=== PATIENT | male | born 1955 | race Caucasian/White ===

== ENCOUNTER 2019-04-27 14:50 | Inpatient (IN) | payer OTHER, SELFPAY ==
[2019-04-27] VITALS (17 sets, daily range): BP systolic 121–167; BP diastolic 76–105; PULSE 68–92; RESP 12–20; TEMP 36.4–36.5; O2SAT 95–100; BMI 21.4
--- NOTE | ~2019-04-27 | XR_ITS ---
XR chest ET placement DATE: 04/27/2019 16:50 INDICATION: Shortness of breath. Altered mental state. ET tube placement. TECHNIQUE: Portable supine AP view on 04/27/2019 at 1644 hours COMPARISON: Portable AP chest on 06/28/2017 FINDINGS: ET tube is approximately 6.5 cm above alma; ideal range is 2-5 cm. Multiple old healed left rib fractures are noted. There is scoliosis and degenerative change of the t horacic and lumbar spine. No pulmonary infiltrate or consolidation, pleural effusion or pulmonary vascular congestion or pneumo thorax is detected. Normal heart size. Aortic calcification. No hilar or mediastinal enlargement. IMPRESSION: ET tube tip 6.5 cm above alma; ideal range is 2-5 cm No active cardiopulmonary disease Reviewed, dictated and finalized at [facility]. Reviewed, dictated and finalized at location A. CTOR OF PUPIL PERSONNEL PROGRAM
--- NOTE | ~2019-04-27 | XR_ITS ---
EXAMINATION: XR chest 1V portable DATE: 04/28/2019 05:56 INDICATION: Ventilated TECHNIQUE: frontal view of the chest was obtained. COMPARISON: Chest radiograph dated 06/27/2018 FINDINGS: Endotracheal tube tip 2.2 cm above the alma. Nasogastric tube with distal tip in proximal side port in the body of the stomach. Mild streaky atelectasis at the left lung base. No pleural effusion or p neumothorax. The cardiomediastinal silhouette is normal. Multiple old healed left-sided rib fractures . Severe thoracolumbar spondylosis. IMPRESSION: 1. Mild left basilar atelectasis. Reviewed, dictated and finalized at location A. NING DEVELOPMENT SPECIALIST
--- NOTE | ~2019-04-27 | CT_ITS ---
EXAMINATION: CT brain wo con DATE: 04/27/2019 16:39 INDICATION: Fall. Found on floor with facial trauma. Unresponsive. Agitated. TECHNIQUE: Computed tomography (CT) of the head was performed without intravenous contrast. The mA wa s adjusted according to patient size. Iterative reconstruction technique was employed. Exam dose: 68 1.00 mGy-cm total exam DLP. COMPARISON: 06/29/2017 MRI brain/brainstem 06/28/2017 CT brain FINDINGS: There is a right frontal cephalohematoma. No skull fracture is detected. There is some soft tissue thickening of the ethmoid air cells and left sphenoid sinus primarily, but the included paran karine sinuses are otherwise unremarkable. The mastoid air cells are normally developed and aerated. There is some beam hardening artifacts in the posterior fossa but no apparent contrecoup injury or an y subdural or epidural hematoma is detected. No intracranial mass lesion or hemorrhage or cerebrovascular accident is evident. CT is not sensitive for detection of hyperacute ischemic cerebrovascular accident. Normal ventricular size. There are bilateral carotid siphon internal carotid artery calcifications. There is nonspecific dimin ished attenuation of the cerebral white matter, likely due to chronic small vessel ischemic changes. IMPRESSION: Right frontal cephalohematoma; no skull fracture or acute intracranial finding Reviewed, dictated and finalized at [facility]. Reviewed, dictated and finalized at location A. RMATION AND REFERRAL DIRECTOR IMPRESSION: Right frontal cephalohematoma; no skull fracture or acute intracra nial finding
--- NOTE | ~2019-04-27 | XR_ITS ---
XR chest ET placement DATE: 04/27/2019 20:49 INDICATION: ET tube advancement TECHNIQUE: Portable AP chest on 04/27/2019 at 2044 hours COMPARISON: 04/27/2019 AP chest FINDINGS: ET tube tip is approximately 3.5 cm above alma in satisfactory position. A nasogastric tu be is noted within the gastric fundus. Normal heart size. Aortic arch calcification. No hilar or mediastinal enlargement is evident. No pulmonary infiltrate or consolidation, pleural effusion or pulmonary vascular congestion or pneumo thorax is detected. Degenerative spurring of the thoracic spine. Old healed left rib fractures. Osteopenia. IMPRESSION: ET tube in satisfactory position Nasogastric tube in stomach No active cardiopulmonary disease Reviewed, dictated and finalized at [facility]. Reviewed, dictated and finalized at location A. BUILDER
--- NOTE | ~2019-04-27 | XR_ITS ---
EXAMINATION: XR chest 1V portable DATE: 05/01/2019 06:05 INDICATION: Shortness of breath TECHNIQUE: frontal view of the chest was obtained. COMPARISON: Chest radiograph dated 04/30/2019 FINDINGS: Skinfold projects over the lateral right upper lung zone. Lucency and architectural distortion in the bilateral upper lung zones consistent with emphysema better appreciated on CT dated 04/27/2019. No n ew airspace opacities, pulmonary edema, pleural effusion or pneumothorax. The cardiomediastinal silho uette is normal. Multiple old healed left-sided rib fractures. Mild lower thoracic levocurvature with severe spondylosis. IMPRESSION: 1. Emphysema. No acute cardiopulmonary disease. Reviewed, dictated and finalized at location A. ER
--- NOTE | ~2019-04-27 | XR_ITS ---
XR abdomen NG/feed tube insert DATE: 04/27/2019 20:49 INDICATION: NG tube placement TECHNIQUE: Portable semiupright AP views on 04/27/2019 at 2046 hours COMPARISON: 05/29/2016 obstructive series FINDINGS: A nasogastric tube is present in the gastric fundus, approximately 15 cm of tube within the upper stomach. Included bowel gas pattern is unremarkable. No intraperitoneal free air is evident. IMPRESSION: NG tube in gastric fundus Reviewed, dictated and finalized at [facility]. Reviewed, dictated and finalized at location A. TIG WELDER IMPRESSION: NG tube in gastric fundus
--- NOTE | ~2019-04-27 | CT_ITS ---
EXAMINATION: CT cervical spine wo con DATE: 04/27/2019 16:39 INDICATION: Fall. Patient found unresponsive on the floor TECHNIQUE: Computed tomography (CT) of the cervical spine was performed without intravenous contrast. Automated exposure control and iterative reconstruction technique were employed. Exam dose: 413.65 mGy-cm total exam DLP. COMPARISON: None FINDINGS: The examination is severely limited by motion. Repeat examination is recommended when the p atient is able to fully cooperate. Moderate degenerative disc disease is noted at C3-4, C4-5. Severe degenerative disc disease at C5-6 a nd C6-7 with retrolisthesis, especially at C5-6. There is fusion at the apophyseal joints bilaterally at C4-5. Prominent degenerative change at the remaining apophyseal joints. Prominent uncovertebral j oint spurring at C4-5 and particularly C5-6 and C6-7.. IMPRESSION: Limited examination due to prominent motion; repeat examination is recommended when the patient is able to cooperate Severe degenerative changes Reviewed, dictated and finalized at [facility]. Reviewed, dictated and finalized at location A. RANCE ASSISTANT
--- NOTE | ~2019-04-27 | XR_ITS ---
EXAMINATION: XR chest 1V portable DATE: 04/30/2019 07:37 INDICATION: Fevers TECHNIQUE: frontal view of the chest was obtained. COMPARISON: Chest radiograph dated 04/29/2019 FINDINGS: The lungs remain clear with no focal airspace opacities, pulmonary edema, pleural effusion or pneumot horax. The cardiomediastinal silhouette is normal. Multiple old healed left-sided rib fractures. IMPRESSION: 1. No acute cardiopulmonary disease. Reviewed, dictated and finalized at location A. D OVEN OPERATOR
--- NOTE | ~2019-04-27 | XR_ITS ---
EXAMINATION: XR chest ET placement DATE: 04/29/2019 01:55 INDICATION: Endotracheal tube placement TECHNIQUE: frontal view of the chest was obtained. COMPARISON: Chest radiograph dated 04/28/2019 FINDINGS: Endotracheal tube tip 3.5 cm above the alma. Nasogastric tube extends below the left hemidiaphragm with distal tip collimated off the study. Lungs remain clear with no airspace opacities, pulmonary e jeremy, pleural effusion or pneumothorax. The cardiomediastinal silhouette is normal. Levocurvature at the thoracolumbar junction with severe spondylosis. Multiple old healed left-sided rib fractures. IMPRESSION: 1. Endotracheal tube tip 3.5 cm above the alma. 2. No acute cardiopulmonary disease. Reviewed, dictated and finalized at location A. CH FOLDING MACHINE OPERATOR
--- NOTE | 2019-04-27 15:23 | PC.NURSE ---
EDP(Dr. Coppola) made aware of patient's condition. No new orders obtained at this time.
--- NOTE | 2019-04-27 15:36 | ED.GENADULT ---
HPI - General Adult General Chief complaint: Altered Mental Status Stated complaint: aloc Time Seen by Provider: 04/27/19 15:24 Source: family Mode of arrival: EMS Limitations: altered mental status History of Present Illness HPI narrative: The pt is a 63 y/o male who presents to the ED, via EMS, with c/o AMS. The pt's daughter states that she got a call saying the pt was found passed out in the bathroom naked. She notes that he takes a lot of medications for pain and that she has not spoken to the pt in a week or two. The pt lives by himself and the daughter states that she does not think he use any illegal substances or alcohol. She states that he has HTN but does not know much about the pt's medical PMHx. A complete HPI was limited due to the pt's AMS. complaint: AMS Associated symptoms: other (none) Related Data Allergies Allergy/AdvReac Type Severity Reaction Status Date / Time Penicillins Allergy Unknown Unknown Verified 04/27/19 15:01 Review of Systems Review of Systems: ROS unobtainable: unobtainable due to mental status PMFSH Past Medical History Medical History (Updated 04/27/19 @ 19:04 by John Coppola MD) Anxiety (Chronic) Back pain (Chronic) COPD (chronic obstructive pulmonary disease) (Chronic) CVA (cerebral vascular accident) (Chronic) Depression (Chronic) Diabetes (Chronic) Emphysema of lung (Chronic) Fractures (Chronic) Hypertension (Chronic) Hypothyroid (Chronic) Peripheral neuropathy (Chronic) Ulcer (Chronic) Surgical History Surgical History (Updated 04/27/19 @ 18:10 by Ciara Jean Baptiste PA-C) History of intestinal surgery (Chronic) Hx of appendectomy (Chronic) Family History Family History (Updated 06/22/14 @ 08:10 by DOCTOR UNKNOWN) Father Hypertension Other Family history of emphysema Social History Social History (Updated 04/27/19 @ 15:45 by Natalie Barraza) Smoking status: Current every day smoker Additional smoking assessment comments: 1-2 PPD for 40 years Alcohol intake: current Exam Const: General: healthy appearing, no acute distress and well developed Nutritional Appearance: well nourished HENMT: Head: normocephalic and atraumatic Ears: external ears normal General nose exam: no nasal discharge and no epistaxis Face and sinus: face symmetric Mouth: Yes lip normal and Yes moist mucous membranes Eyes: Conjunctivae: conjunctivae normal Sclera: sclerae normal EOM: EOM intact bilaterally Other: pupils equal Chest: Chest palpation & inspection: no tenderness Resp: Effort & Inspection: normal respiratory effort Auscultation: clear to auscultation bilaterally, no rales, no rhonchi, no wheezes and other (breath sounds equal) Other: maintaining airway Cardio: Rate: regular rate Rhythm: regular rhythm Heart sounds: no gallops and no murmurs GI: Inspection: non-distended Palpation (GI): No abdominal tenderness and Yes soft Auscultation: other (bowel sounds present) : General: Yes no CVA tenderness Back/Spine/Pelvis: Back: no CVA tenderness Thoracic/Lumbar Spine: thoracic and lumbar spine normal to inspection Skin: General skin exam: normal color and no rashes or lesions noted Other: bruising on nose and forehead Neuro: Other: not talking or following commands, barely moving his feet to painful stimuli Extrem: General: normal to inspection and no pedal edema Psych: Other: not talking or following commands Course Course Emergency Course: he was intermittently very lethargic versus restless/almost combative could not be scanned so elected to paralyze/intubate both for airway protection and to allow for evaluation sedated w/ propofol/fentanyl with stable vs, had to inc rr due to acidosis.co2 retention in the main findings were pretty unremarkable, apart from inc wbc w/o any clear reason and a wnl lactic this was d/w family d/w hospitalists and icu for admit Vital Signs Vital signs: Vital Signs Temperature 36.5
--- NOTE | 2019-04-27 16:05 | PC.NURSE ---
Unable to obtain CT scan due to restlessness. Patient returned to room 14. EDP requesting patient be sedated and intubated to obtain CT scan. Setting up for intubation at this time. Respiratory at bedside.
--- NOTE | 2019-04-27 16:07 | PC.NURSE ---
EDP requesting IV [id number] and IV Etomidate 20mg to be prepared for intubation.
--- NOTE | 2019-04-27 16:09 | PC.NURSE ---
IV Etomidate given at this time per verbal order from EDP.
--- NOTE | 2019-04-27 16:09 | PC.NURSE ---
IV succ given at this time per verbal order from EDP.
--- NOTE | 2019-04-27 16:11 | PC.NURSE ---
EDP attempted to intubate at this time; patient flailing at this time. IV succ 80mg per verbal order from EDP. IV infiltrated; unable to administer meds.
--- NOTE | 2019-04-27 16:14 | PC.NURSE ---
IV Etomidate 20mg given per verbal order from EDP
--- NOTE | 2019-04-27 16:15 | PC.NURSE ---
IV Succ 120mg given per verbal order from EDP. Preparing to attempt intubation.
--- NOTE | 2019-04-27 16:17 | PC.NURSE ---
7.5 ET tube 23 at the lip. Positive color change on CO2 detector. Respiratory bagging at this time.
--- NOTE | 2019-04-27 16:40 | PC.NURSE ---
Patient to CT scan and returned to room 14. IV propofol 40mg given CT at 1636 by this RN per verbal order from EDP.
--- NOTE | 2019-04-27 16:42 | PC.NURSE ---
IV propofol 40mg given per verbal order from EDP.
--- NOTE | 2019-04-27 16:49 | PC.NURSE ---
IV Propofol 40mg given per verbal order from EDP at this time.
--- NOTE | 2019-04-27 17:03 | PC.NURSE ---
IV propofol 40mg given per verbal order from EDP.
[2019-04-27 17:09] LABS: Alveolar/Arterial O2 Gradient 225.6 mmHg; Base Excess ABG -3.3 mEq/l (+/-2.0); Fractional Inspired Oxygen 100 %; HCO3 ABG 24.2 mEq/l (22.0-26.0); Oxygen Content ABG 21.3 %vol (16.0-22.0); Oxygen Saturation ABG 99.8 % (95.0-100.0); Oxyhemoglobin 97.8 % THb (90.0-100.0); PCO2 ABG 53.1 mmHg (35.0-45.0); PO2 ABG 434.3 mmHg (80.0-100.0); PO2 FiO2 Ratio Arterial Blood 4.34 %; Total Hemoglobin 14.7 g/dL (12.0-18.0)
[2019-04-27 17:11] LABS: Arterial Blood Gas PEEP 5 cmH2O; Arterial Blood Gas Tidal Volume 430 ml; Arterial Blood Gas Vent Mode CMV; Arterial Blood Gas Ventilator rate 12 /MIN; Device VENTILATOR; Site Drawn LEFT BRACHIAL; pH ABG 7.277 (7.350-7.450)
[2019-04-27 17:14] LABS: Basophils Absolute Auto 0.1 K/mm3 (0.0-0.1); Basophils Percent Auto 0.3 % (0.2-1.2); Eosinophils Absolute Auto 0.2 K/mm3 (0-0.3); Eosinophils Percent Auto 1.1 % (0-4.4); Hematocrit 42.2 % (42.0-52.0); Hemoglobin 13.9 g/dL (14.0-18.0); Immature Granulocyte Absolute 0.06 K/mm3 (0.00-0.031); Immature Granulocyte Percent A 0.4 % (0-0.5); Lymphocytes Absolute Auto 1.48 K/mm3 (0.9-3.2); Lymphocytes Percent Auto 9.6 % (18.3-44.2); Mean Corpuscular HGB Conc 32.9 g/dl (32-36); Mean Corpuscular Volume 91.1 fl (80-100); Monocytes Absolute Auto 0.6 K/mm3 (0.1-0.6); Monocytes Percent Auto 3.8 % (2.6-8.5); Neutrophils Absolute Auto 13.1 K/mm3 (1.3-6.7); Neutrophils Percent Auto 84.8 % (45.5-73.1); Platelet Count Result 424 k/mm3 (150-375); Red Blood Count 4.63 M/mm3 (4.6-6.20); Red Cell Distribution Width 14.3 % (11.5-14.5); White Blood Count 15.4 K/mm3 (4.5-10.0)
[2019-04-27] MEDS: PROPOFOL IV EMULSION 100 ML 3.6 MG IV CONT (17:25)
[2019-04-27 17:26] LABS: Alanine Aminotransferase 23 U/L (4-50); Albumin Level 4.3 g/dL (3.5-5.1); Alkaline Phosphatase 86 U/L (38-126); Aspartate Amino Transferase 31 U/L (17-59); Bilirubin,Total 0.2 mg/dL (0.2-1.3); Blood Urea Nitrogen 12 mg/dL (9-20); Calcium 9.4 mg/dL (8.4-10.2); Carbon Dioxide 26 mmol/L (22-30); Chloride 105 mmol/L (98-107); Estimated Glomerular Filt Rate > 60; Glucose 118 mg/dL (75-110); Magnesium 2.2 mg/dL (1.6-2.3); Potassium 3.9 mmol/L (3.4-5.0); Sodium 141 mmol/L (137-145)
[2019-04-27 17:27] LABS: Ethanol < 10 mg/dL (<10); Lactic Acid Reflex 0.8 mmol/L (0.7-2.1)
[2019-04-27 17:30] LABS: Amphetamine Screen Urine Negative (Negative); Barbiturate Screen Urine Negative (Negative); Benzodiazepines Screen Urine Positive (Negative); Cannabinoid Screen Urine Negative (Negative); Cocaine Screen Urine Negative (Negative); Methadone Screen Urine Negative (Negative); Opiate Screen Urine Positive (Negative); Phencyclidine Screen Urine Negative (Negative)
--- NOTE | 2019-04-27 17:37 | PC.NURSE ---
IVP propofol 40mg given per verbal order from EDP. EDP called to bedside. Verbal order to increase rate to 20mcg/kg/min.
[2019-04-27 17:39] LABS: Troponin I 0.018 ng/mL (0.000-0.034)
[2019-04-27 17:58] LABS: Thyroid Stimulating Hormone 0.353 uIU/mL (0.465-4.680)
--- NOTE | 2019-04-27 18:06 | PC.NURSE ---
RT at bedside suctioning patient. Patient still moving all extremities and attempting to cough. Verbal order from EDP to increase Propofol drip to 40mcg/kg/min.
[2019-04-27 18:09] LABS: Acetaminophen < 10 ug/mL (10-30); Salicylate < 1.0 mg/dL (2-20)
--- NOTE | 2019-04-27 18:09 | ECG_ITS ---
Measurements Intervals [place] Rate: 90 P: 83 MA: 169 QRS: 88 QRSD: 94 T: 73 QT: 360 QTc: 442 Interpretive Statements SINUS RHYTHM DELAYED PRECORDIAL R/S TRANSITION MINIMAL Q WAVES- ANTEROLAT/INF LEADS BASELINE WANDER- I, II, III BORDERLINE ECG Electronically Signed On 04-28-2019 6:41:11 VOLTMETER OPERATOR by Gonzalez Reyes D.O.
--- NOTE | 2019-04-27 18:10 | PM.IMHP ---
H&P: HPI History of Present Illness Chief complaint: Found down, altered mental status. Narrative: Myles Webster is a 63 year old male with a history of prescription drug abuse and chronic pain syndrome, prescribed multiple medications including oxycodone, morphine, citalopram, meloxicam, amitriptyline, gabapentin, and baclofen, who presented to the emergency department earlier this afternoon via EMS from home for evaluation after he was found down with altered mental status. He is currently sedated and intubated, and as such all of this history is obtained via a review of his electronic medical records as well as discussions with his son and daughter at bedside. His friend and neighbor, Darrius, provides additional information via phone. Darrius sees Myles on a nearly daily basis, and his children note that they see him maybe once or twice a month. The patient has had longstanding low back pain and has been on narcotics ?for years.? All parties I spoke with indicated to me separately that the they are concerned about the patient and believe that he has been abusing his medications for quite some time. Darrius indicates that he is frequently confused, and last week he was ?running around the complex wearing under pants, a shirt, and only one shock ?tearing up the place. Last evening, the police and fire department were at their apartment complex as Myles overflowed his bathtub, which caused a water leak into the apartments below him. According to Darrius, he was confused at that time and she was hopeful that the police would take him to the hospital but they did not. In any event, Darrius received a phone call from another neighbor this morning with concerns about Myles. Apparently his dog was barking all day, which is unusual, and Darrius used her extra quesada to go check on him. She found Myles lying on the bathroom floor with his head propped up against the wall, wearing no clothes, and noted that there were towels and mops scattered around the bathroom. The bathtub was turned on with the drain was open, and no further flooding was noted. EMS was summoned and on their arrival he was confused but alert, however was not answering questions. He was given Narcan without benefit. In the emergency department, he was uncooperative and combative, and unable to hold still for CT. He was then sedated and intubated. Labs were really unremarkable. Urine drug screen was positive for opiates and benzodiazepines. I did review the prescription monitoring program, and I see no benzodiazepine prescriptions. Neighbors and family members do not think he purchases these off the streets, but they tell me that ?drugs are everywhere in that building.? They do not believe that he intentionally overdosed or was trying to harm himself. Review of Systems Review of Systems: ROS unobtainable: due to endotracheal tube PMFSH Past Medical History Medical History Anxiety (Chronic) Back pain (Chronic) COPD (chronic obstructive pulmonary disease) (Chronic) Depression (Chronic) Diabetes (Chronic) Emphysema of lung (Chronic) Fractures (Chronic) Hypertension (Chronic) Hypothyroid (Chronic) Opioid dependence (Acute) Peripheral neuropathy (Chronic) Prescription drug abuse (Acute) Ulcer (Chronic) Surgical History Surgical History (Updated 04/27/19 @ 23:09 by Ciara Jean Baptiste PA-C) H/O left knee surgery (Acute) History of intestinal surgery (Chronic) Hx of appendectomy (Chronic) Family History Family History Father Hypertension Other Family history of emphysema Social History Social History (Updated 04/27/19 @ 23:11 by Ciara Jean Baptiste PA-C) Social History: The patient is disabled and lives in his own apartment in [place]. His primary care provider is Adelaida Chilel NP. 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 His son Ze Webster and daughter Merry Moreau are hi
[2019-04-27 18:11] LABS: Creatine Kinase 165 U/L (55-170)
--- NOTE | 2019-04-27 21:31 | ADMGEN ---
This patient, Myles Webster, was admitted to Intensive Care Unit-3. Patient/family oriented to hospital policies and general routines including ID bracelet, bed and alarms, visiting hours, pain management, procedures, bathroom and other care routines, personal items, smoking policy, room service/diet, and visiting hours. Valuables list has been completed. Information on how to activate the Rapid Response Team has been discussed. Patient/Family are encouraged to report perceived risks to care and to ask questions if they do not understand what they are told or what they should do.
[2019-04-27] MEDS: PROPOFOL IV EMULSION 100 ML 18.1 MG IV CONT (22:05)
[2019-04-27] MEDS: FAMOTIDINE 20 MG/2 ML VIAL IV PUSH (22:12)
[2019-04-27] MEDS: LACTATED RINGERS 1,000 ML 125 ML IV CONT (23:06)
--- NOTE | 2019-04-27 23:22 | PC.NURSE ---
2100: Call made out to Dr. Rogers regarding this patient newly admitted to the ICU. Orders received are to obtain a CXR, labs (CBC and BMP) and ABG's on 04/28/[address] Rogers stated to continue patient's Propofol gtt and Fentanyl gtt and to continue with the ventilator settings started in ER.
[2019-04-28] VITALS (24 sets, daily range): BP systolic 61–150; BP diastolic 52–91; PULSE 49–86; RESP 12–18; TEMP 36.4–37.1; O2SAT 97–100; BMI 20.9
[2019-04-28 01:17] LABS: Free T4 Free Thyroxine 0.85 ng/mL (0.78-2.19)
[2019-04-28] MEDS: PROPOFOL IV EMULSION 100 ML 10.9 MG IV CONT ×3 (04:45→18:11)
[2019-04-28 05:21] LABS: Alveolar/Arterial O2 Gradient 112.7 mmHg; Base Excess ABG 0.6 mEq/l (+/-2.0); Fractional Inspired Oxygen 35 %; HCO3 ABG 25.1 mEq/l (22.0-26.0); Oxygen Content ABG 18.9 %vol (16.0-22.0); Oxyhemoglobin 95.9 % THb (90.0-100.0); PCO2 ABG 40.1 mmHg (35.0-45.0); PO2 ABG 90.2 mmHg (80.0-100.0); PO2 FiO2 Ratio Arterial Blood 2.58 %; pH ABG 7.415 (7.350-7.450)
[2019-04-28 05:22] LABS: Device VENTILATOR; Modified Allen's Test Pass; Site Drawn LEFT RADIAL
[2019-04-28 05:23] LABS: Arterial Blood Gas Minute Volume 7 LPM; Arterial Blood Gas PEEP 5 cmH2O; Arterial Blood Gas Tidal Volume 430 ml; Arterial Blood Gas Vent Mode CMV; Arterial Blood Gas Ventilator rate 16 /MIN
[2019-04-28 05:48] LABS: Alanine Aminotransferase 20 U/L (4-50); Albumin Level 3.7 g/dL (3.5-5.1); Alkaline Phosphatase 72 U/L (38-126); Aspartate Amino Transferase 30 U/L (17-59); Bilirubin,Total 0.1 mg/dL (0.2-1.3); Blood Urea Nitrogen 14 mg/dL (9-20); Calcium 9.2 mg/dL (8.4-10.2); Carbon Dioxide 27 mmol/L (22-30); Chloride 105 mmol/L (98-107); Estimated CRCL calculation 95 ml/min; Estimated Glomerular Filt Rate > 60; Glucose 93 mg/dL (75-110); Magnesium 2.1 mg/dL (1.6-2.3); Phosphorus 3.7 mg/dL (2.5-4.5); Potassium 3.9 mmol/L (3.4-5.0); Sodium 140 mmol/L (137-145)
[2019-04-28 05:54] LABS: Glucose Point of Care 101 (65-105)
[2019-04-28 06:34] LABS: Thyroid Stimulating Hormone Reflex 0.996 uIU/mL (0.465-4.68)
[2019-04-28] MEDS: LACTATED RINGERS 1,000 ML 125 ML IV CONT ×3 (06:37→23:07)
[2019-04-28 07:32] LABS: Basophils Absolute Auto 0.1 K/mm3 (0.0-0.1); Basophils Percent Auto 0.4 % (0.2-1.2); Eosinophils Absolute Auto 0.3 K/mm3 (0-0.3); Eosinophils Percent Auto 1.8 % (0-4.4); Hematocrit 40.1 % (42.0-52.0); Hemoglobin 13.1 g/dL (14.0-18.0); Immature Granulocyte Absolute 0.06 K/mm3 (0.00-0.031); Immature Granulocyte Percent A 0.4 % (0-0.5); Lymphocytes Absolute Auto 2.07 K/mm3 (0.9-3.2); Lymphocytes Percent Auto 12.2 % (18.3-44.2); Mean Corpuscular HGB Conc 32.7 g/dl (32-36); Mean Corpuscular Hemoglobin 29.4 pg (26-34); Mean Corpuscular Volume 89.9 fl (80-100); Mean Platelet Volume 10.6 fl (7.4-10.4); Monocytes Absolute Auto 1.4 K/mm3 (0.1-0.6); Monocytes Percent Auto 8.1 % (2.6-8.5); Neutrophils Absolute Auto 13.1 K/mm3 (1.3-6.7); Neutrophils Percent Auto 77.1 % (45.5-73.1); Platelet Count Result 421 k/mm3 (150-375); Red Blood Count 4.46 M/mm3 (4.6-6.20); Red Cell Distribution Width 14.4 % (11.5-14.5)
[2019-04-28 07:59] LABS: Troponin I 0.754 ng/mL (0.000-0.034)
[2019-04-28] MEDS: ASPIRIN 81 MG CHEWABLE TABLET 324 MG PO (08:02)
[2019-04-28] MEDS: METOPROLOL TARTRATE INJ 5 MG/5 ML VIAL IV PUSH ×2 (08:03→12:27)
[2019-04-28] MEDS: FAMOTIDINE 20 MG/2 ML VIAL IV PUSH ×2 (08:03→20:53)
--- NOTE | 2019-04-28 08:42 | PM.CNCAR ---
Assessment and Plan Additional Plan agree with aspirin and beta-robert treatment empirically The elevation in troponin is not entirely unexpected given this presentation is probably not related to acute myocardial infarction in my opinion Further recommendations if any will be forthcoming after the echocardiogram is reviewed. History of Present Illness History of Present Illness Consult date/time: 04/28/19 08:42 Chief complaint: Found down, altered mental status. Narrative: This is a 63-year-old patient I am seeing at the request of the hospitalist and ICU staff because of an elevation in his troponin level which occurred on lab data following admission last evening. The patient ice in capable of providing any history because he is intubated sedated and on mechanical ventilator support in the ICU. The entire history therefore is obtained according to the chart. From what I am told and from what I can see in the chart there is no previous history of any cardiac problems. He has a longstanding history of pain and has a variety of narcotics prescribed for him that are available to him in his home. According to the chart is that he is there was suspicion that he is abusing his prescription narcotics. He was brought into the hospital last evening when he was found a by the EMS/firefighters were brought to the seen finding him on the floor on clothes in his bathroom with the past up running his dog was barking in the home which alerted other residents in his apartment building that there was concern. His 12 lead ECG that has been recorded in the field and here at the hospital is unremarkable. He was given Narcan in the field and was still a in the state of poorly responsiveness and he became agitated he was intubated and sedated in the ICU and admitted. His drug screen is positive for opiates and benzodiazepines. He had troponin levels done following admission which were 1.4 and 0.7. For this reason I was consulted to see him. He has been placed on aspirin and a beta-robert and an echocardiogram has been ordered. Once again his electrocardiogram does not show any acute changes of injury or ischemia. Review of Systems Review of Systems: Narrative: Not obtainable in this patient who is intubated [facility] Past Medical History Medical History (Updated 04/27/19 @ 23:15 by Ciara Jean Baptiste PA-C) Anxiety (Chronic) Back pain (Chronic) COPD (chronic obstructive pulmonary disease) (Chronic) Depression (Chronic) Diabetes (Chronic) Emphysema of lung (Chronic) Fractures (Chronic) Hypertension (Chronic) Hypothyroid (Chronic) Opioid dependence (Acute) Peripheral neuropathy (Chronic) Prescription drug abuse (Acute) Ulcer (Chronic) Surgical History Surgical History (Updated 04/27/19 @ 23:09 by Ciara Jean Baptiste PA-C) H/O left knee surgery (Acute) History of intestinal surgery (Chronic) Hx of appendectomy (Chronic) Family History Family History Father Hypertension Other Family history of emphysema Social History Social History (Updated 04/27/19 @ 23:11 by Ciara Jean Baptiste PA-C) Social History: The patient is disabled and lives in his own apartment in [place]. His primary care provider is Adelaida Chilel NP. 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 His son Ze Webster and daughter Merry Moreau are his next of kin. They wish him to be a full code. He has smoked up to 2 packs cigarettes per day for at least 40 years. He used to drink a 12 pack of beer daily, but now drinks rarely, according to the children and neighbor. He used to smoke marijuana. Additional smoking assessment comments: Other substance usage details: Meds Home Medications and Allergies Home Medications Medication Instructions Recorded Confirmed Type albuterol sulfate [ProAir HFA] 2 puff INHALATION Q6H PRN 04/27/19 04/27/19 History baclofen 10 mg PO TID 04/27/19 04/27/19 History b
--- NOTE | 2019-04-28 09:23 | WPDCNINT ---
Assessment and Plan Assessment and plan (1) Acute respiratory failure: Code(s): J96.00 - Acute respiratory failure, unspecified whether with hypoxia or hypercapnia Status: Acute Assessment and Plan: acute respiratory failure most likely related to agitation/ combativeness, airway protection - will wean sedation, patient gets agitated will place him on Precedex and evaluate for extubation - chest x-ray and ABGs reviewed (2) Altered mental status: Code(s): R41.82 - Altered mental status, unspecified Status: Acute Assessment and Plan: acute altered mental status/encephalopathy could be related to medication overdose, urine tox screen was positive for opioids and benzos - patient is received adequate amount of fluids, urine output has been adequate - continue maintenance IV fluids (3) Elevated troponin: Code(s): R79.89 - Other specified abnormal findings of blood chemistry Status: Acute Assessment and Plan: patient with elevated troponin - started on aspirin, beta-robert - echocardiogram has been ordered - appreciate Cardiology evaluation recommendation (4) Opioid dependence: Code(s): F11.20 - Opioid dependence, uncomplicated Status: Acute Assessment and Plan: patient with opiate dependence - currently on fentanyl infusion - once fentanyl was weaned off will monitor for any kind of opioid withdrawal and introduce opioids gradually (5) Prescription drug abuse: Status: Acute (6) Fall: Qualifiers: Encounter type: initial encounter Qualified Code(s): W19.XXXA - Unspecified fall, initial encounter Code(s): W19.XXXA - Unspecified fall, initial encounter Status: Acute Assessment and Plan: patient status post fall, hitting his nose and forehead. Patient does have a frontal cephalohematoma on CT scan of the brain. Patient also has bruising on his nose - (7) Hypertension: Code(s): I10 - Essential (primary) hypertension Status: Chronic Assessment and Plan: patient with history of essential hypertension, - started on metoprolol due to elevated troponin (8) COPD (chronic obstructive pulmonary disease): Code(s): J44.9 - Chronic obstructive pulmonary disease, unspecified Status: Chronic Assessment and Plan: continue bronchodilators, mechanical ventilation. Chest x-ray reviewed, no acute cardiopulmonary issues (9) Anxiety: Code(s): F41.9 - Anxiety disorder, unspecified Status: Chronic Assessment and Plan: history of anxiety, patient does take buspirone, citalopram, gabapentin at home will restart (10) DVT prophylaxis: Code(s): Z29.9 - Encounter for prophylactic measures, unspecified Status: Acute Assessment and Plan: SCDs Additional Plan will discuss with family once available code status: full code critical care time spent: 36 minutes Consult date: 04/28/19 Time Seen: 07:04 Reason for consult: acute respiratory failure, altered mental status, fall, facial injury HPI: Myles Webster is a 63 year old male with past medical history of diabetes, COPD /emphysema were essential hypertension, hypothyroidism, opiate dependence, peripheral neuropathy, prescription drug abuse, anxiety presented to the ED via EMS after being found down at home with altered mental status. according to the records patient has been on narcotics for a long time for chronic pain syndrome. the daughter and the neighbor feels that he has been abusing his narcotics and medications for quite some times. Patient was frequently confused and last week he was running around in the complex wearing An underwear, shirt and only ones shock and tearing up the place. on 04/27/2019 did able went to check on him he was found lying on the bathroom floor with his head propped up against the wall wearing no clothes. EMS was called and upon their arr
[2019-04-28] MEDS: PERFLUTREN LIPID MICROSPHERES 1.5 ML VIAL DILUTED TO 10 ML TOTAL VOLUME IV PUSH (09:44)
--- NOTE | 2019-04-28 09:55 | ECHO_ITS ---
Patient Info Name: Myles Webster Age: 63 years : 1955 Gender: Male Ht: 67 in Wt: 134 lbs BSA: 1.69 m2 HR: 65 bpm BP: 125 / 86 mmHg Heart Rhythm: Sinus Rhythm Technical Quality: Good Exam Date: 04/28/2019 9:12 AM Exam Location: [facility] Patient Status: Inpatient Admit Date: 04/27/2019 Staff Ordering Physician: Niecy Rogers MD General Labor Forklift Operator: Yusef Gamboa RDCS Attending Provider: Dutch Redmond MD Referring Physician: Ken MEJIAS; Exam Type: CA echo dop color flow w con Study Info Indications I21.4 - Non-ST elevation (NSTEMI) myocardial infarction Complete two-dimensional, color flow and Doppler transthoracic echocardiogram is performed with contrast to opacify the left ventricle and to improve the deliniation of the left ventricle endocardial borders. Contrast/Agitated Saline Contrast/Ag. Saline: Definity Amount: 3.00 ml Administered By: Mirza Vela RN History/Risk Factors NSTEMI; found down w/ AMS, opoid abuse. Summary 1. Left ventricular systolic function is severely reduced, estimated at 20-25%. 2. Definity contrast was injected to improve visualization. 3. Following contrast injection the LV is noted to be globally hypodynamic. 4. There is trace mitral valve regurgitation. 5. The aortic valve is trileaflet. Left Ventricle Left ventricular chamber dimension is mildly enlarged. Left ventricular systolic function is severely reduced, estimated at 20-25%. Definity contrast was injected to improve visualization. Following contrast injection the LV is noted to be globally hypodynamic. Right Ventricle Right ventricular chamber dimension is not well visualized. Left Atria Left atrial chamber dimension is moderately enlarged. Right Atria Right atrial chamber dimension is mildly enlarged. Aortic Valve The aortic valve is trileaflet. Pulmonic Valve The pulmonic valve is not well visualized. Mitral Valve The mitral valve has normal leaflets. There is trace mitral valve regurgitation. Tricuspid Valve The tricuspid valve leaflets are not well visualized. Pericardium/Pleural The pericardium appears normal. Aorta The aortic root size at the sinus of Valsalva is normal. Left Ventricular Outflow Tract Name Value Normal LVOT 2D LVOT Diameter 2.03 cm LVOT Doppler LVOT Peak Gradient 1 mmHg LVOT Mean Gradient 0 mmHg LVOT VTI 10.00 cm LVOT VTI/AV VTI Ratio 0.71 LVOT Stroke Volume 32.38 ml Mitral Valve Name Value Normal MV Doppler MV Decel King 118.51 cm/s2 MV PHT 0 s MV Area (PHT) 2.84 cm2 4.00-5.00 M
--- NOTE | 2019-04-28 13:30 | PCDIET ---
ICU Rounding Note:TF recommendations Pt current nutrition is NPO. Nutrition recommendation: If pt is unable to wean from vent begin Jevity 1.2 at 40mL/hr for 8 hours and advance by 10 mL every 4 hours as tolerated until a goal rate of 70mL/hour is reached. Include 25 mL free water flushes every hour. Tube feeding at goal rate of 70 mL/hour to provide 1848 calories and 85g protein per day. RD will continue to monitor for diet advancement. Last recorded weight is [f pt wt kg]kg. Bowel Motility: Labs Reviewed:WNL Meds Noted: Additional Notes: Following daily in ICU rounds. Assessing/reassessing [g DIETFREQ].
[2019-04-28] MEDS: SODIUM CHLORIDE 0.9% IV 1,000 ML 999 ML IV CONT (14:53)
--- NOTE | 2019-04-28 18:01 | PM.IMPN ---
Progress Note: A&P Assessment and Plan (1) Altered mental status: Code(s): R41.82 - Altered mental status, unspecified Status: Acute Assessment and Plan: Patient is 63-year-old male with history of chronic pain and and opiate abuse patient was found unresponsive and was brought to the emergency department further evaluation where he was combative and to protect his airway patient was intubated, patient was started on Precedex however patient developed hypotension patient is now being hydrated (2) Acute respiratory failure: Code(s): J96.00 - Acute respiratory failure, unspecified whether with hypoxia or hypercapnia Status: Acute Assessment and Plan: To protect the patient's airway patient was intubated (3) Elevated troponin: Code(s): R79.89 - Other specified abnormal findings of blood chemistry Status: Acute Assessment and Plan: Patient with elevated tropes most likely demand ischemia unlikely acute coronary syndrome patient is seen by commercial baker helper (4) Opioid dependence: Code(s): F11.20 - Opioid dependence, uncomplicated Status: Acute Assessment and Plan: Patient with long history of opiate abuse (5) DVT prophylaxis: Code(s): Z29.9 - Encounter for prophylactic measures, unspecified Status: Acute Assessment and Plan: Heparin Subjective Interval history: Patient is 63-year-old male with history of chronic pain and and opiate abuse patient was found unresponsive and was brought to the emergency department further evaluation where he was combative and to protect his airway patient was intubated, patient was started on Precedex however patient developed hypotension patient is now being hydrated Review of Systems Review of Systems: ROS unobtainable: due to endotracheal tube Exam Const: Other: Patient on vent and sedated HENMT: Other: ET tube in place Neck: Neck: supple Resp: Other: Bilateral fair air entry with harsh breath sounds Cardio: Rate: regular rate Rhythm: regular rhythm Other: No murmur or gallop Skin: General skin exam: normal color and no rashes or lesions noted Neuro: Other: Patient on vent and sedated Extrem: General: normal to inspection Psych: Other: On vent and sedated Objective Data Vital Signs Vital Signs: Vital Signs - 24 hr 04/27/19 18:12 04/27/19 18:18 04/27/19 18:59 Temperature Pulse Rate 89 92 92 Respiratory Rate 20 18 Blood Pressure 147/101 H 161/100 H Pulse Oximetry 100 100 100 04/27/19 19:56 04/27/19 19:59 04/27/19 20:00 Temperature 97.7 F Pulse Rate 92 88 84 Respiratory Rate 18 16 Blood Pressure 158/105 H 144/97 H 144/97 H Pulse Oximetry 100 100 04/27/19 20:05 04/27/19 20:57 04/27/19 22:00 Temperature 97.5 F L Pulse Rate 90 82 86 Respiratory Rate 16 16 Blood Pressure 150/100 H 121/93 H Pulse Oximetry 100 100 100 04/27/19 23:00 04/28/19 00:00 04/28/19 02:00 Temperature 97.8 F 97.7 F Pulse Rate 79 83 80 Respiratory Rate 16 16 Blood Pressure 115/89 109/78 Pulse Oximetry 100 100 100 04/28/19 04:00 04/28/19 05:00 04/28/19 06:00 Temperature 97.6 F 97.5 F L Pulse Rate 73 80 73 Respiratory Rate 16 16 Blood Pressure 122/87 127/88 Pulse Oximetry 99 100 98 04/28/19 08:00 04/28/19 08:03 04/28/19 08:34 Temperature 98.6 F Pulse Rate 74 75 63 Respiratory Rate 16 Blood Pressure 135/91 H Pulse Oximetry 99 100 04/28/19 10:00 04/28/19 11:23 04/28/19 12:00 Temperature 98.5 F Pulse Rate 64 68 71 Respiratory Rate 16 16 Blood Pressure 113/76 103/76 Pulse Oximetry 100 97 97 04/28/19 12:27 04/28/19 14:00 04/28/19 14:30 Temperature Pulse Rate 67 53 L 51 L Respiratory Rate 16 Blood Pressure 61/52 L 82/61 L Pulse Oximetry 100 99 04/28/19 14:40 04/28/19 15:00 04/28/19 16:00 Temperature 98.5 F Pulse Rate 49 L 75 Respiratory Rate 16 Blood Pressure 96/68 L 111/68 Pulse Oximetry 99 99 04/28/19 17:40 T
[2019-04-28] MEDS: METOPROLOL TARTRATE INJ 5 MG/5 ML VIAL 2.5 MG IV PUSH (23:07)
[2019-04-29] VITALS (21 sets, daily range): BP systolic 96–149; BP diastolic 33–90; PULSE 69–121; RESP 7–20; TEMP 36.6–37.9; O2SAT 95–100
[2019-04-29] MEDS: PROPOFOL IV EMULSION 100 ML 18.1 MG IV CONT (01:41)
--- NOTE | 2019-04-29 01:46 | PC.NURSE ---
Patient found to be kneeling in bed with face to his left restrained hand in an apparent attempt to self-extubate at 0135. Fentanyl increased from 100mcg/hr to 150mcg/hr. Propofol increased to 40 mg/kg/min. Restrained by staff to prevent kicking of staff members. Calm at this time.
[2019-04-29 04:14] LABS: Alveolar/Arterial O2 Gradient 85.3 mmHg; Base Excess ABG 2.5 mEq/l (+/-2.0); Carboxyhemoglobin 0.3 % THb (0-2.0); Fractional Inspired Oxygen 30 %; HCO3 ABG 26.7 mEq/l (22.0-26.0); Methemoglobin ABG 0.3 %THb (0-1.5); Oxygen Content ABG 17.1 %vol (16.0-22.0); Oxygen Saturation ABG 96.4 % (95.0-100.0); Oxyhemoglobin 95.2 % THb (90.0-100.0); PCO2 ABG 39.9 mmHg (35.0-45.0); PO2 ABG 81.7 mmHg (80.0-100.0); PO2 FiO2 Ratio Arterial Blood 2.72 %; Reduced Hemoglobin 4.2 %THb (0-5.0); Total Hemoglobin 12.7 g/dL (12.0-18.0); pH ABG 7.444 (7.350-7.450)
[2019-04-29 04:15] LABS: Arterial Blood Gas PEEP 5 cmH2O; Arterial Blood Gas Tidal Volume 430 ml; Arterial Blood Gas Vent Mode CMV; Arterial Blood Gas Ventilator rate 16 /MIN; Device VENTILATOR; Modified Allen's Test Pass; Site Drawn RIGHT RADIAL
[2019-04-29 04:43] LABS: Basophils Absolute Auto 0.1 K/mm3 (0.0-0.1); Basophils Percent Auto 0.4 % (0.2-1.2); Eosinophils Absolute Auto 0.2 K/mm3 (0-0.3); Eosinophils Percent Auto 1.2 % (0-4.4); Hematocrit 36.8 % (42.0-52.0); Hemoglobin 12.1 g/dL (14.0-18.0); Immature Granulocyte Absolute 0.04 K/mm3 (0.00-0.031); Immature Granulocyte Percent A 0.3 % (0-0.5); Lymphocytes Absolute Auto 2.24 K/mm3 (0.9-3.2); Lymphocytes Percent Auto 14.4 % (18.3-44.2); Mean Corpuscular HGB Conc 32.9 g/dl (32-36); Mean Corpuscular Volume 91.3 fl (80-100); Mean Platelet Volume 11.5 fl (7.4-10.4); Monocytes Absolute Auto 1.2 K/mm3 (0.1-0.6); Monocytes Percent Auto 7.7 % (2.6-8.5); Neutrophils Absolute Auto 11.9 K/mm3 (1.3-6.7); Platelet Count Result 364 k/mm3 (150-375); Red Blood Count 4.03 M/mm3 (4.6-6.20); Red Cell Distribution Width 14.2 % (11.5-14.5); White Blood Count 15.6 K/mm3 (4.5-10.0)
[2019-04-29 05:01] LABS: Alanine Aminotransferase 17 U/L (4-50); Albumin Level 3.3 g/dL (3.5-5.1); Alkaline Phosphatase 64 U/L (38-126); Aspartate Amino Transferase 26 U/L (17-59); Bilirubin,Total 0.2 mg/dL (0.2-1.3); Blood Urea Nitrogen 10 mg/dL (9-20); Calcium 8.5 mg/dL (8.4-10.2); Carbon Dioxide 26 mmol/L (22-30); Chloride 104 mmol/L (98-107); Estimated CRCL calculation 93 ml/min; Estimated Glomerular Filt Rate > 60; Glucose 95 mg/dL (75-110); Magnesium 1.7 mg/dL (1.6-2.3); Phosphorus 3.3 mg/dL (2.5-4.5); Potassium 3.5 mmol/L (3.4-5.0); Sodium 137 mmol/L (137-145)
[2019-04-29] MEDS: METOPROLOL TARTRATE INJ 5 MG/5 ML VIAL 2.5 MG IV PUSH ×3 (05:03→17:39)
[2019-04-29] MEDS: LACTATED RINGERS 1,000 ML 125 ML IV CONT (07:06)
[2019-04-29] MEDS: FAMOTIDINE 20 MG/2 ML VIAL IV PUSH (08:20)
[2019-04-29] MEDS: MAGNESIUM SULF 2 GM/WATER 50ML 2 GM/50 ML BAG IVPB (08:22)
[2019-04-29] MEDS: POTASSIUM CHLORIDE 20 MEQ PACKET (FOR LIQUID) 40 MEQ FEED TUBE (08:25)
[2019-04-29] MEDS: PROPOFOL IV EMULSION 100 ML 14.5 MG IV CONT (08:27)
--- NOTE | 2019-04-29 08:31 | WPDINTPN ---
Progress Note: A&P Assessment and Plan (1) Acute respiratory failure: Code(s): J96.00 - Acute respiratory failure, unspecified whether with hypoxia or hypercapnia Status: Acute Assessment and Plan: acute respiratory failure most likely related to agitation/ combativeness, airway protection - wean sedation, will place patient on SBT and evaluate for extubation - chest x-ray and ABGs reviewed (2) Altered mental status: Code(s): R41.82 - Altered mental status, unspecified Status: Acute Assessment and Plan: acute altered mental status/encephalopathy could be related to medication overdose, urine tox screen was positive for opioids and benzos - patient is received adequate amount of fluids, urine output has been adequate - continue maintenance IV fluids (3) Elevated troponin: Code(s): R79.89 - Other specified abnormal findings of blood chemistry Status: Acute Assessment and Plan: patient with elevated troponin - started on aspirin, beta-robert - echocardiogram 04/28/2019 - left ventricular systolic function is severely reduced with EF of 20-25%. Trace mitral valve regurg - cardiomyopathy could be ischemic, cardiology following the patient. Patient will require an Gregorio inhibitor or ARB - will discuss with Cardiology (4) Opioid dependence: Code(s): F11.20 - Opioid dependence, uncomplicated Status: Acute Assessment and Plan: patient with opiate dependence - currently on fentanyl infusion - once fentanyl was weaned off will monitor for any kind of opioid withdrawal and introduce opioids gradually (5) Prescription drug abuse: Status: Acute Assessment and Plan: will continue to monitor for any kind of withdrawal symptoms (6) Fall: Qualifiers: Encounter type: initial encounter Qualified Code(s): W19.XXXA - Unspecified fall, initial encounter Code(s): W19.XXXA - Unspecified fall, initial encounter Status: Acute Assessment and Plan: patient status post fall, hitting his nose and forehead. CT scan of the brain showed right frontal cephalohematoma. CT scan of the cervical spine was limited due to prominent motion, severe degenerative changes were noted. - Patient also has bruising on his nose (7) Hypertension: Code(s): I10 - Essential (primary) hypertension Status: Chronic Assessment and Plan: patient with history of essential hypertension, - started on metoprolol due to elevated troponin (8) COPD (chronic obstructive pulmonary disease): Code(s): J44.9 - Chronic obstructive pulmonary disease, unspecified Status: Chronic Assessment and Plan: continue bronchodilators, mechanical ventilation. Chest x-ray reviewed, no acute cardiopulmonary issues (9) Anxiety: Code(s): F41.9 - Anxiety disorder, unspecified Status: Chronic Assessment and Plan: history of anxiety, patient does take buspirone, citalopram, gabapentin at home will restart (10) DVT prophylaxis: Code(s): Z29.9 - Encounter for prophylactic measures, unspecified Status: Acute Assessment and Plan: SCDs Additional Plan will discuss with family once available code status: full code critical care time spent: 33 minutes Subjective Interval history: Patient is 63-year-old male with history of chronic pain and and opiate abuse patient was found unresponsive and was brought to the emergency department further evaluation where he was combative and to protect his airway patient was intubated. patient was seen and examined this morning. Remains intubated on CMV mode of ventilation, 30% FiO2, peep of 5. Patient is hemodynamically stable, adequate urine output, afebrile. Opens his eyes to name but does not follow simple commands. he is sedated with fentanyl and propofol infusion. According the bedside RN he was trying to wiggle out of the bed last
--- NOTE | 2019-04-29 10:51 | PCDIET ---
ICU Rounding Note: TF recommendations Pt current nutrition is NPO. Nutrition recommendation: If pt is unable to wean from vent begin Jevity 1.2 at 40mL/hr for 8 hours and advance by 10 mL every 4 hours as tolerated until a goal rate of 70mL/hour is reached. Include 25 mL free water flushes every hour. Tube feeding at goal rate of 70 mL/hour to provide 1848 calories and 85g protein per day. RD will continue to monitor for diet advancement. Last recorded weight is 64.2 kg. Bowel Motility: Labs Reviewed:reviewed Meds Noted:reviewed Additional Notes: Following daily in ICU rounds. Assessing/reassessing Sunday/Sunday.
[2019-04-29] MEDS: LORAZEPAM INJ 2 MG/ML VIAL 0.5 MG IV PUSH (13:19)
[2019-04-29] MEDS: LORAZEPAM INJ 2 MG/ML VIAL 1 MG IV PUSH ×2 (17:32→22:24)
[2019-04-30] VITALS (19 sets, daily range): BP systolic 107–140; BP diastolic 68–92; PULSE 86–109; RESP 16–26; TEMP 37.2–38.8; O2SAT 94–97
[2019-04-30] MEDS: ONDANSETRON INJ 4 MG/2 ML VIAL IV PUSH (00:04)
[2019-04-30 01:08] LABS: Lactic Acid Reflex 1.1 mmol/L (0.7-2.1)
[2019-04-30 01:28] LABS: Add Urine Microscopic? YES; Appearance Urine Cloudy (Clear); Bilirubin Urine Negative (Negative); Blood Urine 3+ (Negative); Color Urine Yellow (Yellow); Glucose Urine UA Negative (Negative); Ketones Urine 2+ mg/dL (Negative); Leukocyte Esterase Ur Trace LEU/UL (NEGATIVE); Mucus Urine Heavy /lpf; Nitrate Urine Negative (Negative); Protein Urine 3+ mg/dL (Negative); RBC Urine >75 /hpf (0-2); Specific Grav Ur 1.023 (1.001-1.035); Squamous Epithelial Cell Urine Occasional /hpf (Few); Urobilinogen Urine Negative mg/dL (<2.0); WBC Urine 31-50 /hpf (0-3)
[2019-04-30 05:16] LABS: Hematocrit 39.3 % (42.0-52.0); Hemoglobin 13.4 g/dL (14.0-18.0); Mean Corpuscular HGB Conc 34.1 g/dl (32-36); Mean Corpuscular Volume 87.9 fl (80-100); Mean Platelet Volume 11.5 fl (7.4-10.4); Platelet Count Result 424 k/mm3 (150-375); Red Blood Count 4.47 M/mm3 (4.6-6.20); Red Cell Distribution Width 13.9 % (11.5-14.5)
[2019-04-30] MEDS: LEVOTHYROXINE SODIUM 50 MCG TABLET PO (05:22)
[2019-04-30] MEDS: METOPROLOL TARTRATE INJ 5 MG/5 ML VIAL 2.5 MG IV PUSH ×2 (05:36→11:42)
[2019-04-30 05:38] LABS: Blood Urea Nitrogen 13 mg/dL (9-20); Carbon Dioxide 26 mmol/L (22-30); Chloride 100 mmol/L (98-107); Estimated CRCL calculation 86 ml/min; Estimated Glomerular Filt Rate > 60; Glucose 106 mg/dL (75-110); Phosphorus 4.1 mg/dL (2.5-4.5); Potassium 3.3 mmol/L (3.4-5.0); Sodium 139 mmol/L (137-145)
[2019-04-30] MEDS: FAMOTIDINE 20 MG/2 ML VIAL IV PUSH (08:15)
--- NOTE | 2019-04-30 08:46 | WPDINTPN ---
Progress Note: A&P Assessment and Plan (1) Acute respiratory failure: Code(s): J96.00 - Acute respiratory failure, unspecified whether with hypoxia or hypercapnia Status: Acute Assessment and Plan: patient self extubated on 04/29/2019. Currently on room air, with good O2 sats. - acute respiratory failure most likely related to agitation/ combativeness, airway protection - Chest x-ray (2) Altered mental status: Code(s): R41.82 - Altered mental status, unspecified Status: Acute Assessment and Plan: acute altered mental status/encephalopathy could be related to medication overdose, urine tox screen was positive for opioids and benzos - patient is more awake this morning alert and oriented x2 continues to remain confused but able to follow simple commands and answer few questions. Does not remember the series of events that occurred at home - will order physical and occupational therapy (3) Elevated troponin: Code(s): R79.89 - Other specified abnormal findings of blood chemistry Status: Acute Assessment and Plan: patient with elevated troponin - started on aspirin, beta-robert - echocardiogram 04/28/2019 - left ventricular systolic function is severely reduced with EF of 20-25%. Trace mitral valve regurg - cardiomyopathy could be ischemic, cardiology following the patient. Patient will require an Gregorio inhibitor or ARB - will discuss with Cardiology (4) Opioid dependence: Code(s): F11.20 - Opioid dependence, uncomplicated Status: Acute Assessment and Plan: patient with opiate dependence - will monitor for any kind of opioid withdrawal and introduce opioids gradually (5) Prescription drug abuse: Status: Acute Assessment and Plan: will continue to monitor for any kind of withdrawal symptoms (6) Fall: Qualifiers: Encounter type: initial encounter Qualified Code(s): W19.XXXA - Unspecified fall, initial encounter Code(s): W19.XXXA - Unspecified fall, initial encounter Status: Acute Assessment and Plan: patient status post fall, hitting his nose and forehead. CT scan of the brain showed right frontal cephalohematoma. CT scan of the cervical spine was limited due to prominent motion, severe degenerative changes were noted. - Patient also has bruising on his nose (7) Hypertension: Code(s): I10 - Essential (primary) hypertension Status: Chronic Assessment and Plan: patient with history of essential hypertension, - started on metoprolol due to elevated troponin (8) COPD (chronic obstructive pulmonary disease): Code(s): J44.9 - Chronic obstructive pulmonary disease, unspecified Status: Chronic Assessment and Plan: continue bronchodilators, currently on room air with good O2 sats. Chest x-ray reviewed, no acute cardiopulmonary issues (9) Anxiety: Code(s): F41.9 - Anxiety disorder, unspecified Status: Chronic Assessment and Plan: history of anxiety, Continue buspirone, citalopram, gabapentin (10) DVT prophylaxis: Code(s): Z29.9 - Encounter for prophylactic measures, unspecified Status: Acute Assessment and Plan: SCDs Additional Plan will discuss with family once available code status: full code critical care time spent: 32 minutes Subjective Interval history: patient seen examined this morning, self-extubated on 04/29/2019. Patient remains on room air. was confused yesterday overnight, this morning patient is more awake, alert, oriented x2 - [address] he did not know the president or the year . Patient denies any chest pain, shortness of breath, abdominal pain, nausea, vomiting or any other generalized pain. Patient is hemodynamically stable. Did spike fevers of 101 overnight. UA done showed 31-50 WBCs and heavy mucus. Blood and urine cultures have been obtained. urine output has b
[2019-04-30] MEDS: busPIRone HCL 5 MG TABLET PO (11:43)
[2019-04-30] MEDS: CITALOPRAM HYDROBROMIDE 10 MG TABLET PO (11:43)
--- NOTE | 2019-04-30 15:14 | PCDIET ---
ICU Rounding Note: Patient is NPO after self-extubating on 04/29/19. INS[employer]AIL evaluation ordered. Nutrition recommendation: Advance diet if safe, per speech therapy. Will provide nutrition support recommendations if diet unable to safely advance over the next few days.. Last recorded weight is 63.8kg which is increased. Bowel Motility: Emesis reported overnight. No documented bowel movements. Labs Reviewed: K (3.3), Alb (3.3), Hgb (13.4), Hct (39.3) Meds Noted: Rocephin, Pepcid, Fentanyl, D5W with 40mEq KCl @ 125mL/hr Additional Notes: Nose and frontal head with abrasions; no documented pressure sores. Following daily in ICU rounds. Assessing/reassessing every 3 days.
--- NOTE | 2019-04-30 15:51 | PM.PNCARD ---
Progress Note: A&P Assessment and Plan (1) Elevated troponin: Code(s): R79.89 - Other specified abnormal findings of blood chemistry Status: Acute Assessment and Plan: Troponin 0.018, 1.43, 0.75 not felt to be in acute coronary syndrome. Aspirin was started. Beta-robert was also started. Any ischemic workup is not emergent and can be done as an outpatient. (2) Systolic dysfunction without heart failure: Code(s): I51.89 - Other ill-defined heart diseases Status: Acute Assessment and Plan: Echo 04/28/2019: Left ventricular systolic function is severely reduced, estimated at 20-25%. Definity contrast was injected to improve visualization. Following contrast injection the LV is noted to be globally hypodynamic. There is trace mitral valve regurgitation. The aortic valve is trileaflet. Has been receiving Metoprolol tartrate 2.5 mg q.6 hours IV push. Will transition to metoprolol tartrate 12.5 mg q.12 hours to assess blood pressure response. If blood pressure remains stable will transition to succinate tomorrow. ASHTYN-inhibitor or ARB needs to be added if blood pressure will allow. He is not volume overloaded. Further evaluation of his cardiomyopathy will be done as an outpatient. Plan discussed with Dr Alexander 1620 04/30/2019 (3) Hypertension: Code(s): I10 - Essential (primary) hypertension Status: Chronic Assessment and Plan: At goal (4) Hypokalemia: Code(s): E87.6 - Hypokalemia Status: Acute Assessment and Plan: Treated with 40 mEq IV this morning.. Given has cardiomyopathy will give him an additional 40 this afternoon. Recheck BMP in the morning. Time Spent With Patient Time with patient: less than 15 minutes Subjective Interval history: Follow-up for: Elevated troponin, severely reduced left ventricular systolic function. DATE OF SERVICE: 04/30/2019 Subjective: Denied chest pain, shortness of breath, lightheadedness or palpitations. Wants to go home. Review of Systems Constitutional: Constitutional: Denies fatigue and Denies weakness Eyes: Eyes: Denies blurry vision Cardiovascular: Cardiovascular: Denies chest pain, Denies pedal edema, Denies leg edema, Denies lightheadedness and Denies palpitations Respiratory: Respiratory: Denies cough, Denies dyspnea on exertion and Denies wheezing Gastrointestinal: Gastrointestinal: Denies abdominal pain and Denies bloating Genitourinary: Genitourinary: Denies dysuria Musculoskeletal: Musculoskeletal: Denies back pain and Denies neck pain Integumentary/Breasts: Skin/Breast: Denies dry skin and Denies unusual bruising Neurologic: Denies Abnormal speech present, Denies abnormal gait and Reports confusion Exam Const: General: cooperative and no acute distress Nutritional Appearance: thin Orientation/consciousness: oriented to person and oriented to place HENMT: Mouth: Yes moist mucous membranes Eyes: Sclera: sclerae normal Neck: Neck: no JVD Resp: Auscultation: clear to auscultation bilaterally Cardio: Jugular venous distension: no JVD Rate: regular rate Rhythm: regular rhythm Heart sounds: no murmurs GI: Palpation (GI): Yes soft Auscultation: normal bowel sounds Skin: General skin exam: normal color Neuro: General: oriented to person, oriented to place and no focal motor deficits Extrem: General: normal to inspection Objective Data Vital Signs Vital Signs: Vital Signs - 24 hr 04/29/19 16:00 04/29/19 17:39 04/29/19 18:00 Temperature 37.2 C Pulse Rate 121 H 115 H Respiratory Rate 20 Blood Pressure 99/33 L 139/90 Pulse Oximetry 97 04/29/19 20:00 04/29/19 22:00 04/30/19 00:00 Temperature 37.9 C H 37.5 C 38.8 C H Pulse Rate 109 H 108 H 109 H Respiratory Rate 20 20 20 Blood Pressure 128/77 118/84 134/78 Pulse Oximetry 96 100 96 04/30/19 02:00 04/30/19 04:00 04/30/19 05:36 Temperature 37.3 C Pulse Rate 105 H 96 99 Respiratory Rate 24 H 24 H
--- NOTE | 2019-04-30 16:12 | PM.IMPN ---
Progress Note: A&P Assessment and Plan (1) Altered mental status: Code(s): R41.82 - Altered mental status, unspecified Status: Acute Assessment and Plan: Etiology not clear at this time, and patient cannot provide history as he is sedated and intubated. Given the history provided by friends and family, he may very well have a concussion due to closed head injury. He has a history of prescription drug abuse, and may have taken more medication than prescribed. breathing better, Bp better, still confused, hopeful discharge tomorrow, need to stop some medication on dischrage (2) Acute respiratory failure: Code(s): J96.00 - Acute respiratory failure, unspecified whether with hypoxia or hypercapnia Status: Acute Assessment and Plan: REsolved after intubation extubated now, will order Cxr eden Am (3) Prescription drug abuse: Status: Acute Assessment and Plan: He is prescribed plethora of medications by his primary care provider, including morphine, oxycodone, citalopram, amitriptyline, meloxicam, baclofen, and gabapentin. I think a lot of his problem is due to polypharmacy, and recommend that he sees pain management for alternative treatment. (4) Opioid dependence: Code(s): F11.20 - Opioid dependence, uncomplicated Status: Acute Assessment and Plan: Plan as detailed above. Subjective Interval history: Patient is 63-year-old male with history of chronic pain and and opiate abuse patient was found unresponsive and was brought to the emergency department further evaluation where he was combative and to protect his airway patient was intubated, patient was started on Precedex however patient developed hypotension, pt was hydrated in ICU, now is stable for transfer to the medical floor, hopeful dischrage tomorrow, CT head -Right frontal cephalohematoma Review of Systems Cardiovascular: Cardiovascular: Denies chest pain, Denies irregular heart rhythm, Denies dyspnea and Denies dyspnea on exertion Respiratory: Respiratory: Denies cough, Denies hemoptysis, Denies dyspnea, Denies dyspnea on exertion and Denies wheezing Gastrointestinal: Gastrointestinal: Denies abdominal pain and Denies change in bowel habits Musculoskeletal: Musculoskeletal: Denies no additional musculoskeletal complaints, Denies limited range of motion and Denies numbness Psychiatric: Psychiatric: Denies hallucinations and Denies tactile hallucinations Exam Narrative: Exam Narrative: Unkempt chronically ill appearing, malnourished Cardio: Rate: regular rate Rhythm: regular rhythm Skin: General skin exam: normal color and no rashes or lesions noted Extrem: General: normal to inspection Objective Data Vital Signs Vital Signs: Vital Signs - 24 hr 04/29/19 17:39 04/29/19 18:00 04/29/19 20:00 Temperature 37.9 C H Pulse Rate 115 H 109 H Respiratory Rate 20 Blood Pressure 139/90 128/77 Pulse Oximetry 96 04/29/19 22:00 04/30/19 00:00 04/30/19 02:00 Temperature 37.5 C 38.8 C H Pulse Rate 108 H 109 H 105 H Respiratory Rate 20 20 24 H Blood Pressure 118/84 134/78 131/92 H Pulse Oximetry 100 96 95 04/30/19 04:00 04/30/19 05:36 04/30/19 06:00 Temperature 37.3 C Pulse Rate 96 99 96 Respiratory Rate 24 H 21 H Blood Pressure 109/86 125/82 Pulse Oximetry 95 95 04/30/19 08:00 04/30/19 08:09 04/30/19 08:17 Temperature 38.2 C H Pulse Rate 96 99 Respiratory Rate 17 Blood Pressure 107/78 Pulse Oximetry 97 04/30/19 10:00 04/30/19 10:02 04/30/19 11:42 Temperature 37.5 C Pulse Rate 103 H 102 H 105 H Respiratory Rate 22 H Blood Pressure 139/88 Pulse Oximetry 96 04/30/19 12:00 04/30/19 12:01 04/30/19 14:00 Temperature 37.5 C Pulse Rate 88 97 95 Respiratory Rate 26 H 26 H Blood Pressure 121/89 117/80 Pulse Oximetry 97 95 04/30/19 16:03 Temperature 37.5 C Pulse Rate 98 Respiratory Rate 26 H Blood Pressure 120/68 Pulse Oximetry 96
[2019-04-30] MEDS: BACLOFEN 10 MG TABLET PO (16:16)
[2019-04-30] MEDS: POTASSIUM CHLORIDE 20 MEQ PACKET (FOR LIQUID) 40 MEQ PO (16:38)
[2019-04-30] MEDS: MORPHINE SULFATE 30 MG TABCR PO (21:14)
[2019-04-30] MEDS: GABAPENTIN 300 MG CAPSULE 900 MG PO (21:15)
[2019-04-30] MEDS: METOPROLOL TARTRATE 12.5 MG TABLET PO (21:17)
[2019-05-01 04:56] LABS: Hematocrit 37.5 % (42.0-52.0); Hemoglobin 12.3 g/dL (14.0-18.0); Mean Corpuscular HGB Conc 32.8 g/dl (32-36); Mean Corpuscular Volume 88.4 fl (80-100); Mean Platelet Volume 10.5 fl (7.4-10.4); Platelet Count Result 397 k/mm3 (150-375); Red Blood Count 4.24 M/mm3 (4.6-6.20); Red Cell Distribution Width 13.8 % (11.5-14.5)
[2019-05-01 05:11] LABS: Blood Urea Nitrogen 13 mg/dL (9-20); Calcium 9.1 mg/dL (8.4-10.2); Carbon Dioxide 25 mmol/L (22-30); Chloride 105 mmol/L (98-107); Estimated CRCL calculation 85 ml/min; Estimated Glomerular Filt Rate > 60; Glucose 110 mg/dL (75-110); Phosphorus 3.2 mg/dL (2.5-4.5); Potassium 3.7 mmol/L (3.4-5.0); Sodium 140 mmol/L (137-145)
[2019-05-01] MEDS: LEVOTHYROXINE SODIUM 50 MCG TABLET PO (06:52)
[2019-05-01 08:00] VITALS: BP 114/75; PULSE 86; PULSE 94; RESP 16; RESP 18; TEMP 37.3; O2SAT 95; O2SAT 98
[2019-05-01] MEDS: METOPROLOL TARTRATE 12.5 MG TABLET PO (09:04)
[2019-05-01] MEDS: busPIRone HCL 5 MG TABLET PO (09:05)
[2019-05-01] MEDS: FERROUS SULFATE 324 MG TABLET PO (09:05)
[2019-05-01] MEDS: MELOXICAM 7.5 MG TABLET 15 MG PO (09:05)
[2019-05-01] MEDS: MORPHINE SULFATE 30 MG TABCR PO ×2 (09:05→22:06)
[2019-05-01] MEDS: CITALOPRAM HYDROBROMIDE 10 MG TABLET PO (09:06)
[2019-05-01] MEDS: BACLOFEN 10 MG TABLET PO ×3 (09:06→17:39)
[2019-05-01 10:48] VITALS: O2SAT 94
--- NOTE | 2019-05-01 12:40 | PC.NURSE ---
Pt to move to 306-1 Report given to Ronna NGUYỄN 05/01/19 at 1232
--- NOTE | 2019-05-01 12:53 | PC.NURSE ---
pt transfered to 306, report given to DELMA salas,
--- NOTE | 2019-05-01 13:21 | PM.IMPN ---
Progress Note: A&P Assessment and Plan (1) Altered mental status: Code(s): R41.82 - Altered mental status, unspecified Status: Acute Assessment and Plan: Etiology not clear at this time, and patient cannot provide history as he is sedated and intubated. Given the history provided by friends and family, he may very well have a concussion due to closed head injury. He has a history of prescription drug abuse, and may have taken more medication than prescribed. breathing better, Bp better, still confused, hopeful discharge tomorrow, need to stop some medication on dischrage (2) Acute respiratory failure: Code(s): J96.00 - Acute respiratory failure, unspecified whether with hypoxia or hypercapnia Status: Acute Assessment and Plan: Resolved after intubation extubated now, cxr shows emphysema (3) Prescription drug abuse: Status: Acute Assessment and Plan: He is prescribed plethora of medications by his primary care provider, including morphine, oxycodone, citalopram, amitriptyline, meloxicam, baclofen, and gabapentin. I think a lot of his problem is due to polypharmacy, and recommend that he sees pain management for alternative treatment. (4) Opioid dependence: Code(s): F11.20 - Opioid dependence, uncomplicated Status: Acute Assessment and Plan: Plan as detailed above. Subjective Interval history: Patient is 63-year-old male with history of chronic pain and and opiate abuse patient was found unresponsive and was brought to the emergency department further evaluation where he was combative and to protect his airway patient was intubated, patient was started on Precedex however patient developed hypotension, pt was hydrated in ICU, now is stable for transfer to the medical floor, breathing better, states he wants to cut back with his medications, CT head [place] [id number] [place] [id number] Review of Systems Respiratory: Respiratory: Denies cough, Denies hemoptysis, Denies dyspnea, Denies dyspnea on exertion and Denies wheezing Gastrointestinal: Gastrointestinal: Denies abdominal pain and Denies change in bowel habits Musculoskeletal: Musculoskeletal: Denies no additional musculoskeletal complaints, Denies limited range of motion and Denies numbness Neurologic: Denies numbness Psychiatric: Psychiatric: Denies hallucinations and Denies tactile hallucinations Allergic/Immunologic: Allergic/Immunologic: Denies wheezing Exam Narrative: Exam Narrative: Unkempt chronically ill appearing, malnourished Const: Other: Unkempt chronically ill appearing, malnourished HENMT: Other: Unkempt chronically ill appearing, malnourished Neck: Neck: supple Cardio: Rate: regular rate Rhythm: regular rhythm Skin: General skin exam: normal color and no rashes or lesions noted Extrem: General: normal to inspection Objective Data Vital Signs Vital Signs: Vital Signs - 24 hr 04/30/19 14:00 04/30/19 16:03 04/30/19 20:00 Temperature 37.5 C Pulse Rate 95 98 Respiratory Rate 26 H 26 H Blood Pressure 117/80 120/68 Pulse Oximetry 95 96 96 04/30/19 21:15 04/30/19 21:17 04/30/19 23:40 Temperature 37.6 C 37.2 C Pulse Rate 92 92 86 Respiratory Rate 16 18 Blood Pressure 137/81 140/80 Pulse Oximetry 96 95 05/01/19 08:00 05/01/19 10:48 Temperature 37.3 C Pulse Rate 94 Respiratory Rate 16 Blood Pressure 114/75 Pulse Oximetry 98 94 L Intake/Output Intake/Output: Intake & Output 04/28/19 04/29/19 04/30/19 05/01/19 23:59 23:59 23:59 23:59 Intake Total 4517 1311 1440 480 Output Total 1700 3400 676 Balance 8458 -0806 484 480 Meds/Results Medications: Active Medications Generic Name Dose Route Start Last Admin Trade Name Freq PRN Reason Stop Dose Admin Acetaminophen 325 mg 04/30/19 13:54 Tylenol Tablet PO Q8H PRN Breakthrough Pain, Moderate Albuterol 2 puff 04/27/19 23:21 Prove
--- NOTE | 2019-05-01 13:24 | PC.NURSE ---
This patient, Myles Webster, was received from the ICU on 05/01/19 at 1250. Personal belongings list checked and signed. Patient/family oriented to unit policies and routines
[2019-05-01 14:00] VITALS: BP 114/61; PULSE 87; RESP 16; TEMP 36.6; O2SAT 95
--- NOTE | 2019-05-01 14:18 | PCDIET ---
Nutrition Follow-Up Complete: Nutrition Diagnosis: Predicted suboptimal intake r/t mechanical ventilation as evidence by NPO status Nutrition Goal: Initiate diet/tube feeding Goal met. Patient now on level 7 easy to chew diet, per PRODUCT SUPPORT TECHNICIAN recommendations, which is appropriate, as intakes average around 40% of meals thus far. Recommend Glucerna Shake (220kcal, 10g protein) BID to supplement intakes. Would also consider medication to promote bowel movement. Last recorded weight is 63.4 kg which is increased. I/O positive overall this admission. Bowel Motility: No documented bowel movement. Labs Reviewed: 05/01/19 BMP WNL. K+ WNL after replaced. Meds Noted: Ferrous Sulfate, MS Contin Nutrition Monitoring and Evaluation: Follow up in 5 days. New goals: intakes >50%, supplement acceptance.
--- NOTE | 2019-05-01 17:07 | PM.PNCARD ---
Progress Note: A&P Assessment and Plan (1) Systolic dysfunction without heart failure: Code(s): I51.89 - Other ill-defined heart diseases Status: Acute Assessment and Plan: Tolerating the Metoprolol tartrate q.12 hours. Will add lisinopril this afternoon at 2.5 mg daily. Transition to Metoprolol succinate tomorrow. Euvolemic at this time. No diuretics needed. Given his EF 20-25%. Life vest was discussed. Will revisit him in the morning to discuss further. Discussed low ejection fraction and medications that will be using to help with his heart muscle function. Not sure he would understand all the alarms and alerts on the Life Vest if he were home by himself. He states he is going to be going to his daughter's house at this time but she does work. He states he wants to do everything so that he wall so he can see his grandchildren grow up. Meloxicam discontinued. Unfortunately he will not be able to use NSAIDs for his discomforts due to his cardiomyopathy. [facility] will not be able to follow him due to his insurance. He will be referred to Dr. Reyes at discharge. (2) Hypertension: Code(s): I10 - Essential (primary) hypertension Status: Chronic Assessment and Plan: At goal (3) Hypokalemia: Code(s): E87.6 - Hypokalemia Status: Acute Assessment and Plan: Potassium 3.7 today. Will give another dose of potassium this afternoon check BMP in the morning. (4) Elevated troponin: Code(s): R79.89 - Other specified abnormal findings of blood chemistry Status: Acute Assessment and Plan: Troponin 0.018, 1.43, 0.75 not felt to be in acute coronary syndrome. Continue aspirin beta-robert as above Any ischemic workup is not emergent and can be done as an outpatient. Time Spent With Patient Time with patient: 15 - 25 minutes Subjective Interval history: Follow-up for: Elevated troponin, severely reduced left ventricular systolic function. DATE OF SERVICE: 05/01/2019 Subjective: A lot of discomfort in his joints. States walked in the halls with physical therapy without any lightheadedness or shortness of breath. No chest discomfort. Review of Systems Constitutional: Constitutional: Denies fatigue and Denies weakness Eyes: Eyes: Denies blurry vision ENT: Denies epistaxis, Reports nasal congestion and Denies neck pain Cardiovascular: Cardiovascular: Denies chest pain, Denies pedal edema, Denies leg edema, Denies lightheadedness, Denies palpitations and Denies dyspnea on exertion Respiratory: Respiratory: Denies cough, Denies dyspnea on exertion and Denies wheezing Gastrointestinal: Gastrointestinal: Denies abdominal pain and Denies bloating Genitourinary: Genitourinary: Denies dysuria Musculoskeletal: Musculoskeletal: Denies abnormal gait, Denies back pain and Denies neck pain Integumentary/Breasts: Skin/Breast: Denies dry skin and Denies unusual bruising Neurologic: Denies confusion, Denies headache(s), Denies numbness and Denies weakness Psychiatric: Psychiatric: Denies confusion Endocrine: Endocrine: Denies fatigue and Denies palpitations Allergic/Immunologic: Allergic/Immunologic: Denies wheezing Exam Const: General: cooperative, no acute distress and confused Nutritional Appearance: thin Orientation/consciousness: oriented to person, oriented to place and confused HENMT: Mouth: Yes moist mucous membranes Eyes: Sclera: sclerae normal Neck: Neck: no JVD Resp: Auscultation: clear to auscultation bilaterally Cardio: Jugular venous distension: no JVD Rate: regular rate Rhythm: regular rhythm Heart sounds: no murmurs GI: Palpation (GI): Yes soft Auscultation: normal bowel sounds Skin: General skin exam: normal color Neuro: General: oriented to person, oriented to place, no focal motor deficits and confused Speech: No speech abnormal Extrem: General: normal to inspection Psych: Mental Status: mental status grossly
[2019-05-01] MEDS: POTASSIUM CHLORIDE 20 MEQ TABLET 40 MEQ PO (17:39)
[2019-05-01] MEDS: LISINOPRIL 2.5 MG TABLET PO (17:40)
[2019-05-01 20:57] VITALS: BP 143/85; PULSE 83; RESP 16; TEMP 36.8; O2SAT 95
[2019-05-01] MEDS: GABAPENTIN 300 MG CAPSULE 900 MG PO (22:06)
[2019-05-01 22:27] LABS: Glucose Point of Care 89 (65-105)
[2019-05-02 05:30] VITALS: BP 124/65; PULSE 57; RESP 16; TEMP 37.1; O2SAT 100
[2019-05-02] MEDS: LEVOTHYROXINE SODIUM 50 MCG TABLET PO (06:21)
[2019-05-02 06:28] LABS: Hematocrit 37.3 % (42.0-52.0); Hemoglobin 12.1 g/dL (14.0-18.0); Mean Corpuscular HGB Conc 32.4 g/dl (32-36); Mean Corpuscular Hemoglobin 28.8 pg (26-34); Mean Corpuscular Volume 88.8 fl (80-100); Platelet Count Result 409 k/mm3 (150-375); Red Cell Distribution Width 13.9 % (11.5-14.5); White Blood Count 10.4 K/mm3 (4.5-10.0)
[2019-05-02 06:39] LABS: Blood Urea Nitrogen 20 mg/dL (9-20); Calcium 9.1 mg/dL (8.4-10.2); Carbon Dioxide 25 mmol/L (22-30); Chloride 106 mmol/L (98-107); Estimated CRCL calculation 88 ml/min; Estimated Glomerular Filt Rate > 60; Glucose 101 mg/dL (75-110); Magnesium 1.9 mg/dL (1.6-2.3); Potassium 3.8 mmol/L (3.4-5.0); Sodium 140 mmol/L (137-145)
[2019-05-02 08:50] VITALS: O2SAT 93
--- NOTE | 2019-05-02 09:37 | PM.PNCARD ---
Progress Note: A&P Assessment and Plan (1) Systolic dysfunction without heart failure: Code(s): I51.89 - Other ill-defined heart diseases Status: Acute Assessment and Plan: Tolerted Metoprolol tartrate q.12 hours and lisinopril 2.5 mg Transition to Metoprolol succinate this morning. Remains euvolemic Given his EF 20-25%. Life vest was discussed. He verbalizes an understanding of his low ejection fraction and risk for sudden cardiac . He is agreeable to wear the life vest. Will order Life Vest this morning. Hopefully if his insurance approves he will be able to be fitted and discharged this afternoon. [facility] will not be able to follow him due to his insurance. He will be referred to Dr. Reyes at discharge. Plan discussed with Dr Alexander 0945 05/02/2019 (2) Hypertension: Code(s): I10 - Essential (primary) hypertension Status: Chronic Assessment and Plan: At goal (3) Hypokalemia: Code(s): E87.6 - Hypokalemia Status: Acute Assessment and Plan: Potassium 3.8 today. Potassium 40 mEq now. Monitor BMP as an outpatient. (4) Elevated troponin: Code(s): R79.89 - Other specified abnormal findings of blood chemistry Status: Acute Assessment and Plan: Troponin 0.018, 1.43, 0.75 not felt to be in acute coronary syndrome. Continue aspirin beta-robert as above Any ischemic workup is not emergent and can be done as an outpatient. Additional Plan Time Spent With Patient Time with patient: 15 - 25 minutes Subjective Interval history: Follow-up for: Elevated troponin, severely reduced left ventricular systolic function. DATE OF SERVICE: 05/02/2019 Subjective: Feeling better this morning. Ambulated in the [place]. Denied chest discomfort, shortness of breath or lightheadedness. Joints are much better today. Review of Systems Constitutional: Constitutional: Denies fatigue, Denies headache(s) and Denies weakness Eyes: Eyes: Denies blurry vision ENT: Denies headache(s), Denies epistaxis, Reports nasal congestion and Denies neck pain Cardiovascular: Cardiovascular: Denies chest pain, Denies pedal edema, Denies leg edema, Denies lightheadedness, Denies palpitations and Denies dyspnea on exertion Respiratory: Respiratory: Denies cough, Denies dyspnea on exertion and Denies wheezing Gastrointestinal: Gastrointestinal: Denies abdominal pain and Denies bloating Genitourinary: Genitourinary: Denies dysuria Musculoskeletal: Musculoskeletal: Denies back pain, Denies neck pain and Denies numbness Integumentary/Breasts: Skin/Breast: Denies dry skin and Denies unusual bruising Neurologic: Denies confusion, Denies headache(s), Denies numbness and Denies weakness Psychiatric: Psychiatric: Denies confusion Endocrine: Endocrine: Denies fatigue and Denies palpitations Allergic/Immunologic: Allergic/Immunologic: Denies wheezing Exam Const: General: cooperative and no acute distress; No confused Nutritional Appearance: thin Orientation/consciousness: oriented to person, oriented to place and No confused Other: I HENMT: Mouth: Yes moist mucous membranes Eyes: Sclera: sclerae normal Neck: Neck: no JVD Thyroid: thyroid normal Resp: Auscultation: clear to auscultation bilaterally Cardio: Jugular venous distension: no JVD Rate: regular rate Rhythm: regular rhythm Heart sounds: no murmurs GI: Palpation (GI): Yes soft Auscultation: normal bowel sounds Skin: General skin exam: normal color Neuro: General: oriented to person, oriented to place, no focal motor deficits and No confused Extrem: General: normal to inspection Psych: Mental Status: mental status grossly normal Objective Data Vital Signs Vital Signs: Vital Signs - 24 hr 05/01/19 10:48 05/01/19 14:00 05/01/19 20:57 Temperature 36.6 C 36.8 C Pulse Rate 87 83 Respiratory Rate 16 16 Blood Pressure 114/61 143/85 H Pulse Oximetry 94 L 95 95 05/02/19 05:30 T
[2019-05-02 10:27] VITALS: BP 132/74; PULSE 78; RESP 16; TEMP 37.1; O2SAT 94
[2019-05-02] MEDS: BACLOFEN 10 MG TABLET PO ×3 (10:32→17:27)
[2019-05-02] MEDS: busPIRone HCL 5 MG TABLET PO (10:33)
[2019-05-02] MEDS: FERROUS SULFATE 324 MG TABLET PO (10:34)
[2019-05-02] MEDS: LISINOPRIL 2.5 MG TABLET PO (10:34)
[2019-05-02] MEDS: CITALOPRAM HYDROBROMIDE 10 MG TABLET PO (10:34)
[2019-05-02] MEDS: POTASSIUM CHLORIDE 20 MEQ TABLET 40 MEQ PO (10:35)
--- NOTE | 2019-05-02 11:02 | PM.DS ---
DS: Diagnosis Admitting Diagnosis Admitting Diagnosis: Acute respiratory failure, unspecified whether with hypoxia or hypercapnia Discharge Diagnosis (1) Altered mental status: Code(s): R41.82 - Altered mental status, unspecified Status: Acute Assessment and Plan: Patient has a history of prescription drug abuse, and may have taken more medication than prescribed. breathing is better now, Bp is better now , pt is not confused today, need to stop some medication on discharge (2) Acute respiratory failure: Code(s): J96.00 - Acute respiratory failure, unspecified whether with hypoxia or hypercapnia Status: Acute Assessment and Plan: Resolved after intubation extubated now, cxr shows emphysema, treaed with iv abx doing better (3) Prescription drug abuse: Status: Acute Assessment and Plan: He is prescribed plethora of medications by his primary care provider, including morphine, oxycodone, citalopram, amitriptyline, meloxicam, baclofen, and gabapentin. I think a lot of his problem is due to polypharmacy, and recommend that he sees pain management for alternative treatment.medications reviewd and cut back prior to discharge. (4) Opioid dependence: Code(s): F11.20 - Opioid dependence, uncomplicated Status: Acute Assessment and Plan: Plan as detailed above. (5) Systolic dysfunction without heart failure: Code(s): I51.89 - Other ill-defined heart diseases Status: Acute Assessment and Plan: Pt to continue on Metoprolol and lisinopril 2.5 mg EF 20-25%. Life vest was placed as per cardiology. DS: Summary Time Spent with Patient Time attestation: Total time spent providing and/or coordinating discharge services:40 minutes on day of discharge Exam Narrative: Exam Narrative: Unkempt chronically ill appearing, malnourished Const: Other: Unkempt chronically ill appearing, malnourished HENMT: Other: Unkempt chronically ill appearing, malnourished Neck: Neck: supple Cardio: Rate: regular rate Rhythm: regular rhythm Skin: General skin exam: normal color and no rashes or lesions noted Extrem: General: normal to inspection DS: Data Data Completed and Pending Labs on day of discharge: Labs from last 24 hours 05/02/19 05/02/19 05/01/19 05:50 05:50 22:08 WBC 10.4 H RBC 4.20 L Hgb 12.1 L Hct 37.3 L MCV 88.8 MCH 28.8 MCHC 32.4 RDW 13.9 Plt Count 409 H MPV 11.0 H Sodium 140 Potassium 3.8 Chloride 106 Carbon Dioxide 25 BUN 20 Creatinine 0.60 L Estim Creat Clear Calc 88 Estimated GFR > 60 Glucose 101 POC Capillary Glucose 89 Calcium 9.1 Phosphorus 4.0 Magnesium 1.9 Preliminary micro results at discharge 04/30/19 00:37 Blood Culture - Preliminary Blood 04/30/19 00:37 Blood Culture - Preliminary Blood Discharge Plan Discharge Attending physician on discharge: Argentina Zacarias Consulting providers: Levi Alexander ; Russell Wellington Discharging Clinician: Argentina Zacarias Anticipated Discharge Date/Time: 05/02/19 10:54 Patient Disposition: Home, Self-Care Activity: other - see discharge instructions Diet: low sodium Discharge Instructions: CARDIOLOGY DISCHARGE INSTRUCTIONS: Activity as tolerated with precautions to avoid falls. Rise slowly from a seated or lying position. Weigh self daily. If gain more than 3 lb in 2 days or 5 lb in [address] Reyes's office for direction. Wear Life Vest at all times except when showering. You should have someone with you when you are not wearing the vest. Patient Instructions: Antibiotic Form, Heart Failure (DC), Pain Management Older Adults (DC) Stand Alone Forms: General Discharge Information Follow-up/Referrals: Gonzalez Reyes DO [Physician] - (Appointment with Dr Reyes on May 14, 2019 at 8:00 a.m.. Please arrive by 7:45 a.m.. Bring photo ID, insurance
[2019-05-02 14:54] VITALS: PULSE 99
[2019-05-02] MEDS: METOPROLOL SUCCINATE EXT REL 25 MG TABCR PO (14:54)
== END 2019-05-02 18:34 | disposition home or self-care (01) | DRG 133 ==
LOC: ANHED 19:04 → ANHICU 23:00 → ANH3MEDSUR 05-01 15:15 → ANHICU 05-12 07:59
PROVIDERS: Internal Medicine; Physician Assistant; Admitting Provider Internal Medicine; Emergency Provider Emergency Medicine; Visit Provider Family Medicine
DX: J96.01 Acute respiratory failure with hypoxia (principal); J96.02 Acute respiratory failure with hypercapnia; R41.82 Altered mental status, unspecified; F11.20 Opioid dependence, uncomplicated; I51.89 Other ill-defined heart diseases; E11.42 Type 2 diabetes mellitus with diabetic polyneuropathy; I10 Essential (primary) hypertension; M54.9 Dorsalgia, unspecified; G89.29 Other chronic pain; F41.8 Other specified anxiety disorders; J43.9 Emphysema, unspecified; E03.9 Hypothyroidism, unspecified; Z86.73 Personal history of transient ischemic attack (TIA), and cerebral infarction without residual deficits; F17.210 Nicotine dependence, cigarettes, uncomplicated; R79.89 Other specified abnormal findings of blood chemistry; S00.33XA Contusion of nose, initial encounter; W19.XXXA Unspecified fall, initial encounter; E87.6 Hypokalemia; I42.9 Cardiomyopathy, unspecified
CPT/HCPCS: 31500; 36415; 36600; 70450; 71045; 72125; 80048; 80053; 80307; 81001; 82375; 82550; 82805; 83050; 83605; 83735; 84100; 84439; 84443; 84484; 85025; 85027; 87040; 87081; 87086; 87185; 92610; 93005; 94003; 94640; 96365; 96366; 96368; 97110; 97116; 97161; 97165; 97530; 97535; 99291; A9270; C8929; J0131; J0330; J0696; J1956; J2060; J2405; J2704; J3010; J3475; J3480; J7030; J7050; J7120; Q9957

== ENCOUNTER 2019-07-31 11:59 | Outpatient (CLI) | payer OTHER, SELFPAY ==
--- NOTE | 2019-07-31 12:19 | ECHO_ITS ---
Patient Info Name: Myles Webster Age: 64 years : 1955 Gender: Male Ht: 65 in Wt: 142 lbs BSA: 1.73 m2 HR: 51 bpm BP: 128 / 89 mmHg Technical Quality: Good Exam Date: 07/31/2019 12:27 PM Exam Location: [facility] Patient Status: Outpatient Admit Date: 07/31/2019 Staff Ordering Physician: Gonzalez Reyes DO Hobber: Adelfo Delgado RDCS, RT Attending Provider: Gonzalez Reyes DO Referring Physician: Eric BAIRD; Exam Type: CA echo doppler color flow Study Info Indications I50.9 - Heart failure, unspecified Complete two-dimensional, color flow and Doppler transthoracic echocardiogram is performed. Summary 1. Left ventricular chamber dimension is normal. 2. Left ventricular systolic function is normal, estimated at 60-65%. 3. The left ventricular diastolic function is grade I diastolic dysfunction. 4. E/e' 9 is minimally elevated. 5. Global longitudinal strain is normal at -17.4%. 6. Left atrial chamber dimension is mildly enlarged. Left Ventricle E/e' 9 is minimally elevated. Global longitudinal strain is normal at -17.4%. Left ventricular chamber dimension is normal. Left ventricular systolic function is normal, estimated at 60-65%. The left ventricular diastolic function is grade I diastolic dysfunction. Right Ventricle Right ventricular chamber dimension is normal. Right ventricular systolic function is normal. Left Atria Left atrial chamber dimension is mildly enlarged. Right Atria Right atrial chamber dimension is normal. Aortic Valve The aortic valve is trileaflet. There is no aortic valve stenosis. There is no aortic valve regurgitation. Pulmonic Valve There is no pulmonic regurgitation. Mitral Valve There is no mitral valve stenosis. There is no mitral valve regurgitation. Tricuspid Valve There is no tricuspid valve regurgitation. Pericardium/Pleural There is no pericardial effusion. Inferior Vena Cava Normal inferior vena cava with >50% collapse upon inspiration consistent with normal right atrial pressure, 5 mmHg. Aorta The aortic root size at the sinus of Valsalva is normal. Left Ventricular Outflow Tract Name Value Normal LVOT 2D LVOT Diameter 2.2 cm LVOT Doppler LVOT Peak Gradient 2 mmHg LVOT Mean Gradient 1 mmHg LVOT VTI 14 cm LVOT VTI/AV VTI Ratio 0.7 LVOT Stroke Volume 53 ml LVOT CO 4.1 l/min LVOT CI 2.4 l/min/m2 Pulmonic Valve Name Value Normal PV Doppler PV Peak Gradient 5 mmHg Mitral Valve Name Value Normal
== END 2019-07-31 12:00 | disposition home or self-care (01) ==
PROVIDERS: Visit Provider Internal Medicine Cardiovascular Disease
DX: I51.89 Other ill-defined heart diseases (principal); I51.7 Cardiomegaly
CPT/HCPCS: 93306

== ENCOUNTER 2019-12-30 01:49 | Inpatient (IN) | payer OTHER, SELFPAY ==
[2019-12-30] VITALS (17 sets, daily range): BP systolic 99–178; BP diastolic 65–125; PULSE 76–85; RESP 14–20; TEMP 36.6–38.1; O2SAT 90–99; BMI 21.4
--- NOTE | ~2019-12-30 | XR_ITS ---
EXAMINATION: XR chest 1V portable DATE: 12/30/2019 06:17 INDICATION: Hypoxia. TECHNIQUE: A single frontal view of the chest was obtained. COMPARISON: Chest single view 05/01/2019, CT abdomen and pelvis 06/19/2017 FINDINGS: There are lucencies in the lungs, consistent with emphysema. There are airspace opacities i n right midlung zone. No pleural effusion or pneumothorax. The heart size is normal. There are old he aled left rib fractures. IMPRESSION: 1. Airspace opacities in right midlung zone, consistent with atelectasis versus pneumonia. 2. Emphysema. Reviewed, dictated and finalized at location A.
--- NOTE | ~2019-12-30 | CT_ITS ---
EXAMINATION: CT brain wo con DATE: 12/30/2019 05:03 INDICATION: Acute cerebrovascular accident. TECHNIQUE: Computed tomography (CT) of the head was performed without intravenous contrast. The mA wa s adjusted according to patient size. Iterative reconstruction technique was employed. The dose-lengt h product was 605.33 mGy-cm. COMPARISON: Head CT 04/27/2019 FINDINGS: There are scattered areas of low attenuation in the cerebral white matter. There is no intr acranial hemorrhage, acute infarction, or abnormal intracranial mass lesion. The ventricles are eliel l in size. There is mild mucosal thickening in the paranasal sinuses. The mastoid air cells are eliel l. The orbits are normal. IMPRESSION: 1. Stable mild nonspecific cerebral white matter disease, which likely represents chronic small vesse l ischemic disease. Reviewed, dictated and finalized at location A. IMPRESSION: 1. Stable mild nonspecific cerebral white matter disease, which likely represen ts chronic small vessel ischemic disease.
--- NOTE | 2019-12-30 02:05 | ECG_ITS ---
Measurements Intervals [place] Rate: 82 P: 43 NM: 172 QRS: 31 QRSD: 94 T: 40 QT: 352 QTc: 412 Interpretive Statements SINUS RHYTHM BASELINE ARTIFACT- I, II, AVR, AVL, AVF NORMAL ECG Electronically Signed On 12-30-2019 7:17:39 CDT by Gonzalez Reyes D.O.
[2019-12-30 02:19] LABS: Basophils Absolute Auto 0.1 K/mm3 (0.0-0.1); Basophils Percent Auto 0.4 % (0.2-1.2); Eosinophils Absolute Auto 1.3 K/mm3 (0-0.3); Eosinophils Percent Auto 8.8 % (0-4.4); Hematocrit 33.3 % (42.0-52.0); Hemoglobin 11.2 g/dL (14.0-18.0); Immature Granulocyte Absolute 0.04 K/mm3 (0.00-0.031); Immature Granulocyte Percent A 0.3 % (0-0.5); Lymphocytes Absolute Auto 3.48 K/mm3 (0.9-3.2); Lymphocytes Percent Auto 23.1 % (18.3-44.2); Mean Corpuscular HGB Conc 33.6 g/dl (32-36); Mean Corpuscular Volume 89.3 fl (80-100); Mean Platelet Volume 10.7 fl (7.4-10.4); Monocytes Absolute Auto 1.2 K/mm3 (0.1-0.6); Monocytes Percent Auto 8.1 % (2.6-8.5); Neutrophils Absolute Auto 8.9 K/mm3 (1.3-6.7); Neutrophils Percent Auto 59.3 % (45.5-73.1); Platelet Count Result 309 k/mm3 (150-375); Red Blood Count 3.73 M/mm3 (4.6-6.20); Red Cell Distribution Width 14.1 % (11.5-14.5); White Blood Count 15.1 K/mm3 (4.5-10.0)
[2019-12-30] MEDS: NALOXONE HCL INJ 2 MG/2 ML AMP (02:21)
[2019-12-30] MEDS: SODIUM CHLORIDE 0.9% IV 1,000 ML 999 ML IV CONT (02:21)
--- NOTE | 2019-12-30 02:24 | ED.AMS ---
HPI - Altered Mental Status General Chief Complaint: Altered Mental Status Stated Complaint: ams Time Seen by Provider: 12/30/19 02:06 History of Present Illness HPI narrative: Neighbor called EMS for decreased alertness of the patient. He has a history of narcotic overdose. He takes chronic prescription narcotics for pain. He was unresponsive with hypoxia when I went in to see him. He was given Narcan 2 mg and woke up. He complains of low back pain. MD complaint: altered mental status and confusion Onset (ago): hour(s) Timing confirmed by: other (Neighbor) Severity: severe Consistency of symptoms: waxing and waning Context: drug abuse Associated symptoms: chest pain Related Data Home Medications Medication Instructions Recorded Confirmed Qvar RediHaler 2 inh INHALATION BID 04/27/19 06/30/19 albuterol sulfate [ProAir HFA] 2 puff INHALATION Q6H PRN 04/27/19 06/30/19 buspirone 5 mg PO DAILY 04/27/19 06/30/19 citalopram 10 mg PO DAILY 04/27/19 06/30/19 ferrous sulfate 325 mg PO DAILY 04/27/19 06/30/19 gabapentin 900 mg PO HS 04/27/19 06/30/19 levothyroxine 50 mcg PO QAM 04/27/19 06/30/19 morphine 30 mg PO BID 04/27/19 06/30/19 amitriptyline 75 mg tablet 150 mg PO .hs tablet 05/14/19 06/30/19 aspirin 81 mg tablet,delayed 81 mg PO DAILY 05/14/19 06/30/19 release baclofen 10 mg tablet 10 mg PO TID tablet 05/14/19 06/30/19 buspirone 15 mg tablet 15 mg PO TID 05/14/19 06/30/19 cholecalciferol (vitamin D3) 25 1,000 unit PO TID cap 05/14/19 06/30/19 mcg (1,000 unit) capsule meloxicam 15 mg tablet 15 mg PO DAILY 05/14/19 06/30/19 nicotine 14 mg/24 hr daily 1 patch TRANSDERM DAILY 05/14/19 06/30/19 transdermal patch oxycodone-acetaminophen 10 mg-325 1 tablet PO Q8H PRN 05/14/19 06/30/19 mg tablet promethazine 25 mg tablet 12.5 mg PO Q6H PRN tablet 05/14/19 06/30/19 Allergies Allergy/AdvReac Type Severity Reaction Status Date / Time Penicillins Allergy Unknown Unknown Verified 06/30/19 10:01 Review of Systems Review of Systems: Narrative: Review of systems is limited by the patient's altered mental status. COUNTS INCLUDE 234 BEDS AT THE [facility] Past Medical History Medical History Anxiety Back pain COPD (chronic obstructive pulmonary disease) Depression Diabetes Emphysema of lung Fractures rib Hypertension Hypothyroid Opioid dependence Peripheral neuropathy Prescription drug abuse Ulcer Surgical History Surgical History H/O left knee surgery History of intestinal surgery Sounds as though he had exploratory laparotomy with adhesiolysis after bowel obstruction. Hx of appendectomy Social History Social History Social History: The patient is disabled and lives in his own apartment in [place]. His primary care provider is Adelaida Chilel NP. 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 His son Ze Webster and daughter Merry Moreau are his next of kin. They wish him to be a full code. He has smoked up to 2 packs cigarettes per day for at least 40 years. He used to drink a 12 pack of beer daily, but now drinks rarely, according to the children and neighbor. He used to smoke marijuana. Additional smoking assessment comments: Other substance usage details: Spiritual care concerns: No Exam Narrative: Exam Narrative: GENERAL: Unkempt patient sound asleep, with slow shallow breathing. HEAD: Normocephalic, atraumatic. EYES: PERRLA and EOMI. ENT: Nares clear, no rhinorrhea or epistaxis. Mucous membranes moist. NECK: Supple. CHEST: Clear to auscultation. HEART: Regular rate and rhythm. No murmur heard. Normal peripheral pulses. ABDOMEN: Soft, nontender, nondistended, normal active bowel sounds. EXTREMITIES: No edema. SKIN: Warm, dry, no rash. NEURO: No focal deficits. . PSYCH: . Course Consultations Consultation #1: Call Dr. Enciso and he agrees to admit the pat
[2019-12-30 02:33] LABS: Alanine Aminotransferase 16 U/L (4-50); Albumin Level 3.8 g/dL (3.5-5.1); Alkaline Phosphatase 81 U/L (38-126); Aspartate Amino Transferase 33 U/L (17-59); Bilirubin,Total 0.2 mg/dL (0.2-1.3); Blood Urea Nitrogen 11 mg/dL (9-20); Calcium 8.8 mg/dL (8.4-10.2); Carbon Dioxide 28 mmol/L (22-30); Chloride 102 mmol/L (98-107); Estimated Glomerular Filt Rate > 60; Glucose 103 mg/dL (75-110); Potassium 4.6 mmol/L (3.4-5.0); Sodium 136 mmol/L (137-145)
[2019-12-30 02:36] LABS: Ethanol < 10 mg/dL (<10)
--- NOTE | 2019-12-30 02:37 | PC.NURSE ---
Bed alarm placed underneath patient. Patient was up in room, and escorted back onto stretcher by this RN and another RN. Patient frequently spitting on the floor, only alert to self.
--- NOTE | 2019-12-30 03:18 | PC.NURSE ---
Patient had his prescription morphine in his pocket. Med was counted, 45 pills, counted by this RN and director community center. Patient's med placed in department safe.
[2019-12-30 03:30] LABS: Add Urine Microscopic? NO; Appearance Urine Clear (Clear); Bilirubin Urine Negative (Negative); Blood Urine Negative (Negative); Color Urine Straw (Yellow); Glucose Urine UA Negative (Negative); Ketones Urine Negative (Negative); Leukocyte Esterase Ur Negative LEU/UL (Negative); Nitrate Urine Negative (Negative); Protein Urine Negative (Negative); Specific Grav Ur 1.006 (1.001-1.035); Urobilinogen Urine Negative mg/dL (<2.0)
[2019-12-30 03:38] LABS: Amphetamine Screen Urine Negative (Negative); Barbiturate Screen Urine Negative (Negative); Benzodiazepines Screen Urine Negative (Negative); Cannabinoid Screen Urine Negative (Negative); Cocaine Screen Urine Negative (Negative); Methadone Screen Urine Negative (Negative); Opiate Screen Urine Positive (Negative); Phencyclidine Screen Urine Negative (Negative)
--- NOTE | 2019-12-30 04:50 | PM.IMHP ---
H&P: HPI History of Present Illness Chief complaint: Narcotic overdose Narrative: This is a 64 year old Diabetic male with known chronic back pain on chronic narcotic medication who presented to the hospital with acute altered mental status. Apparently the patient's neighbors found him crawling around with decreased alertness. The patient has previous history of narcotic overdose. On arrival to the ER the patient was found to be obtunded and hypoxic. He was administered Narcan IVP which woke him up. He was promptly placed on a Narcan IV drip as he kept falling asleep as soon as the narcan wore off. The patient is known to be on Morphine 30 mg PO extended release. On my encounter with him he admits to me that he has been falling lately and he cannot remember any details of what happened to him earlier this evening. He denies to me any suicidal ideation or intentional overdose. He states he takes his pain medications until he gets relief. He denies any chest pain, nausea, vomiting, fever, headache, shortness of breath, cough, dysuria, hematuria, diarrhea or LE edema. He is only complaining of back pain at this time. ER provider has consulted our Typesetters Printer, Dr. Rogers. Review of Systems Review of Systems: All systems reviewed & are unremarkable except as noted in HPI and below PMFSH Past Medical History Medical History Anxiety Back pain COPD (chronic obstructive pulmonary disease) Depression Diabetes Emphysema of lung Fractures rib Hypertension Hypothyroid Opioid dependence Peripheral neuropathy Prescription drug abuse Ulcer Surgical History Surgical History H/O left knee surgery History of intestinal surgery Sounds as though he had exploratory laparotomy with adhesiolysis after bowel obstruction. Hx of appendectomy Family History Family History Father Hypertension Other Family history of emphysema Social History Social History Social History: The patient is disabled and lives in his own apartment in [place]. His primary care provider is Adelaida Chilel NP. 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 His son Ze Webster and daughter Merry Moreau are his next of kin. They wish him to be a full code. He has smoked up to 2 packs cigarettes per day for at least 40 years. He used to drink a 12 pack of beer daily, but now drinks rarely, according to the children and neighbor. He used to smoke marijuana. Smoking packs per day: 2 Smoking cigarettes per day: 40.0 Years smoked: 40 Smoking pack-years: 80.00 Smoking status: Current every day smoker Tobacco type: cigarettes Additional smoking assessment comments: Alcohol intake: former Drinks per week: 84 Substance use: current Substance use type: marijuana and opiates Other substance usage details: Gender identity (if verbalized by the patient): Male Spiritual care concerns: No Meds Home Medications and Allergies Home Medications Medication Instructions Recorded Confirmed Type Qvar RediHaler 2 inh INHALATION BID 04/27/19 12/30/19 History albuterol sulfate [ProAir HFA] 2 puff INHALATION Q6H PRN 04/27/19 12/30/19 History citalopram 10 mg PO DAILY 04/27/19 12/30/19 History ferrous sulfate 325 mg PO DAILY 04/27/19 12/30/19 History gabapentin 900 mg PO HS 04/27/19 12/30/19 History levothyroxine 50 mcg PO QAM 04/27/19 12/30/19 History morphine 30 mg PO BID 04/27/19 12/30/19 History amitriptyline 75 mg tablet 150 mg PO .hs tablet 05/14/19 12/30/19 History baclofen 10 mg tablet 10 mg PO TID tablet 05/14/19 12/30/19 History meloxicam 15 mg tablet 15 mg PO DAILY 05/14/19 12/30/19 History metoprolol succinate 50 mg 50 mg PO DAILY #30 tablet 05/14/19 12/30/19 Rx tablet,extended release 24 hr oxycodone-acetaminophen
[2019-12-30] MEDS: DEXTROSE 5%/0.9% SOD CHL 1,000 ML 100 ML IV CONT (05:14)
[2019-12-30] MEDS: LEVOTHYROXINE SODIUM INJ 100 MCG/5 ML VIAL 25 MCG IV PUSH (07:20)
--- NOTE | 2019-12-30 10:28 | PM.IMPN ---
Progress Note: A&P Assessment and Plan (1) Narcotic overdose: Qualifiers: Encounter type: initial encounter Injury intent: accidental or unintentional Qualified Code(s): T40.601A - Poisoning by unspecified narcotics, accidental (unintentional), initial encounter Code(s): T40.601A - Poisoning by unspecified narcotics, accidental (unintentional), initial encounter Status: Acute Assessment and Plan: Appears to be an unintentional overdose. Patient ahs been admitted to ICU on Narcan drip. Narcan drip IV able to be weaned off today. Appreciate caustic operator input. Continue to hold narcotics. (2) Leukocytosis: Qualifiers: Leukocytosis type: unspecified Qualified Code(s): D72.829 - Elevated white blood cell count, unspecified Code(s): D72.829 - Elevated white blood cell count, unspecified Status: Acute Assessment and Plan: Likely secondary to trauma from recent falls. No signs or acute infection at this time. Monitor CBCd. (3) Altered mental status: Qualifiers: Altered mental status type: unspecified Qualified Code(s): R41.82 - Altered mental status, unspecified Code(s): R41.82 - Altered mental status, unspecified Status: Acute Assessment and Plan: CT brain showing no acute findings. Mental status change appears to be secondary to narcotic overdose. Improving. (4) Frequent falls: Code(s): R29.6 - Repeated falls Status: Acute Assessment and Plan: Likely secondary to being overmedicated. Fall precautions. PT/OT consult. OOB today. (5) Diabetes: Qualifiers: Diabetes mellitus type: type 2 Diabetes mellitus intermediate teacher insulin use: without penitentiary use Diabetes mellitus complication status: without complication Qualified Code(s): E11.9 - Type 2 diabetes mellitus without complications Code(s): E11.9 - Type 2 diabetes mellitus without complications Status: Chronic Assessment and Plan: Not on medications for DM. Continue Accuchecks, SSI coverage, and hypoglycemic protocol. (6) Hypothyroid: Qualifiers: Hypothyroidism type: unspecified Qualified Code(s): E03.9 - Hypothyroidism, unspecified Code(s): E03.9 - Hypothyroidism, unspecified Status: Chronic Assessment and Plan: Stable. Continue levothyroxine. (7) COPD (chronic obstructive pulmonary disease): Qualifiers: COPD type: unspecified COPD Qualified Code(s): J44.9 - Chronic obstructive pulmonary disease, unspecified Code(s): J44.9 - Chronic obstructive pulmonary disease, unspecified Status: Chronic Assessment and Plan: Stable. Resume bronchodilators as needed. (8) Back pain: Qualifiers: Back pain location: back pain in unspecified location Chronicity: chronic Back pain laterality: unspecified Qualified Code(s): M54.9 - Dorsalgia, unspecified; G89.29 - Other chronic pain Code(s): M54.9 - Dorsalgia, unspecified Status: Chronic Assessment and Plan: Will continue to hold his pain medications. Will resume long-acting morphine possibly tomorrow if his mental status remains stable. (9) Hypertension: Qualifiers: Hypertension type: unspecified Qualified Code(s): I10 - Essential (primary) hypertension Code(s): I10 - Essential (primary) hypertension Status: Chronic Assessment and Plan: he did blood pressure is labile or prior values were inaccurate. Will hold on home medications and follow for now. Subjective Date/time seen: 12/30/19 10:28 Interval history: 64-year-old male here for altered mental status related to drug overdose. Patient feels better today. He is more oriented. He denies any chest pain or shortness of breath. He has not eaten yet. He denies any headache. He is remaining calmed. He was able to stand and void with standby assistance. He olivas
--- NOTE | 2019-12-30 11:54 | WPDCNINT ---
Assessment and Plan Assessment and plan (1) Narcotic overdose: Qualifiers: Encounter type: initial encounter Injury intent: accidental or unintentional Qualified Code(s): T40.601A - Poisoning by unspecified narcotics, accidental (unintentional), initial encounter Code(s): T40.601A - Poisoning by unspecified narcotics, accidental (unintentional), initial encounter Status: Acute Assessment and Plan: patient with narcotic overdose responded well to Narcan infusion, currently weaned off Narcan infusion. - Will continue to monitor mental status and respiratory status - will hold narcotics at this time - will monitor for withdrawal symptoms (2) Leukocytosis: Qualifiers: Leukocytosis type: unspecified Qualified Code(s): D72.829 - Elevated white blood cell count, unspecified Code(s): D72.829 - Elevated white blood cell count, unspecified Status: Acute Assessment and Plan: likely reactive from recent falls and trauma. - No signs of infection with seen at this time (3) Altered mental status: Qualifiers: Altered mental status type: unspecified Qualified Code(s): R41.82 - Altered mental status, unspecified Code(s): R41.82 - Altered mental status, unspecified Status: Acute Assessment and Plan: most likely related to narcotic overdose, patient denies any suicidal or homicidal ideation (4) Diabetes: Qualifiers: Diabetes mellitus type: type 2 Diabetes mellitus buttermaker continuous churn insulin use: without buttermaker continuous churn use Diabetes mellitus complication status: without complication Qualified Code(s): E11.9 - Type 2 diabetes mellitus without complications Code(s): E11.9 - Type 2 diabetes mellitus without complications Status: Chronic Assessment and Plan: continue Accu-Cheks and sliding scale insulin (5) Hypothyroid: Qualifiers: Hypothyroidism type: unspecified Qualified Code(s): E03.9 - Hypothyroidism, unspecified Code(s): E03.9 - Hypothyroidism, unspecified Status: Chronic Assessment and Plan: continue levothyroxine (6) Back pain: Qualifiers: Back pain location: back pain in unspecified location Chronicity: chronic Back pain laterality: unspecified Qualified Code(s): M54.9 - Dorsalgia, unspecified; G89.29 - Other chronic pain Code(s): M54.9 - Dorsalgia, unspecified Status: Chronic Assessment and Plan: patient has history of chronic back pain multiple narcotics - will restart narcotics gradually avoid narcotic withdrawal and also for pain control Additional Plan discussed with patient updated with his condition and plan of care. I answered all questions code status: Full code critical care time spent: 37 minutes Due to a high probability of clinically significant, life threatening deterioration, the patient required my highest level of preparedness to intervene emergently and I personally spent this critical care time directly and personally managing the patient. This critical care time included obtaining a history; examining the patient; pulse oximetry; ordering and review of studies; arranging urgent treatment with development of a management plan; evaluation of patient's response to treatment; frequent reassessment; and discussions with other providers. It was exclusive of separately billable procedures and treating other patients and teaching time. Please see Assessment and Plan section and the rest of the note for further information on patient assessment and treatment Director Of Donor Relations Consult Note Consult date: 12/30/19 Time Seen: 07:11 Reason for consult: Narcotic overdose HPI: Myles Webster is a 64 year old male with significant past medical history of chronic back pain, COPD, emphysema, essential hypertension, peripheral neuropathy, prescription drug abuse, anxiety presented to the ED with complains of altered mental status and decreased alertnes
--- NOTE | 2019-12-30 13:30 | PC.NURSE ---
1200 This patient, Myles Webster, was received from [ ] on 12/30/19 at 1200. Personal belongings list checked and signed. Patient/family oriented to unit policies and routines
[2019-12-30] MEDS: AMITRIPTYLINE HCL 25 MG TABLET 75 MG PO (21:06)
[2019-12-30] MEDS: GABAPENTIN 300 MG CAPSULE 900 MG PO (21:06)
[2019-12-31 06:00] VITALS: BP 151/94; PULSE 81; RESP 20; TEMP 37; O2SAT 94
[2019-12-31] MEDS: LEVOTHYROXINE SODIUM 50 MCG TABLET PO (06:03)
[2019-12-31 06:07] LABS: Basophils Absolute Auto 0.1 K/mm3 (0.0-0.1); Basophils Percent Auto 0.4 % (0.2-1.2); Eosinophils Absolute Auto 0.5 K/mm3 (0-0.3); Eosinophils Percent Auto 3.9 % (0-4.4); Hematocrit 37.1 % (42.0-52.0); Hemoglobin 12.5 g/dL (14.0-18.0); Immature Granulocyte Absolute 0.04 K/mm3 (0.00-0.031); Immature Granulocyte Percent A 0.3 % (0-0.5); Lymphocytes Absolute Auto 1.86 K/mm3 (0.9-3.2); Lymphocytes Percent Auto 16.2 % (18.3-44.2); Mean Corpuscular HGB Conc 33.7 g/dl (32-36); Mean Corpuscular Hemoglobin 30.3 pg (26-34); Mean Corpuscular Volume 89.8 fl (80-100); Mean Platelet Volume 11.2 fl (7.4-10.4); Monocytes Absolute Auto 0.8 K/mm3 (0.1-0.6); Monocytes Percent Auto 7.2 % (2.6-8.5); Neutrophils Absolute Auto 8.2 K/mm3 (1.3-6.7); Platelet Count Result 339 k/mm3 (150-375); Red Blood Count 4.13 M/mm3 (4.6-6.20); Red Cell Distribution Width 13.9 % (11.5-14.5); White Blood Count 11.5 K/mm3 (4.5-10.0)
[2019-12-31 06:16] LABS: Glucose Point of Care 113 (65-105)
[2019-12-31 06:25] LABS: Blood Urea Nitrogen 12 mg/dL (9-20); Calcium 9.1 mg/dL (8.4-10.2); Carbon Dioxide 27 mmol/L (22-30); Chloride 105 mmol/L (98-107); Estimated CRCL calculation 89 ml/min; Estimated Glomerular Filt Rate > 60; Glucose 111 mg/dL (75-110); Potassium 3.8 mmol/L (3.4-5.0); Sodium 138 mmol/L (137-145)
[2019-12-31] MEDS: CITALOPRAM HYDROBROMIDE 10 MG TABLET PO (09:35)
[2019-12-31] MEDS: MELOXICAM 7.5 MG TABLET 15 MG PO (09:35)
[2019-12-31] MEDS: FERROUS SULFATE 324 MG TABLET PO (09:36)
--- NOTE | 2019-12-31 11:00 | PC.NURSE ---
Patient missing from room at 1050. Security and lead warehouse associate notified immediately. Front entrance notified and given a description of patient.
--- NOTE | 2019-12-31 11:05 | PC.NURSE ---
Police notified that patient left the hospital and has IV in place. Police report that the patient has already been found and will be brought back to the floor. Nurse claim manager, Kindra states that the patient is ok to be brought back to this department if ok with Dr. Redmond. Dr. Redmond ok with the patient coming back to the floor.
--- NOTE | 2019-12-31 11:15 | PC.NURSE ---
Patient brought back to floor and placed in room 333 to be monitored close to the nurse's station. Dr. Redmond on floor to assess patient. Patient still experiencing hallucinations and is A&Ox2 at this time. NAD noted. Vital signs stable.
[2019-12-31 11:28] VITALS: BP 144/94; PULSE 95; RESP 18; TEMP 37.4; O2SAT 95
--- NOTE | 2019-12-31 11:33 | PM.IMPN ---
Progress Note: A&P Assessment and Plan (1) Narcotic overdose: Qualifiers: Encounter type: initial encounter Injury intent: accidental or unintentional Qualified Code(s): T40.601A - Poisoning by unspecified narcotics, accidental (unintentional), initial encounter Code(s): T40.601A - Poisoning by unspecified narcotics, accidental (unintentional), initial encounter Status: Acute Assessment and Plan: Appears to be an unintentional overdose. Patient was Evaluated in the emergency room placed on a Narcan drip. He was admitted to the ICU. Patient's mental status improved and we were able to wean the Narcan drip off. Patient recovering as expected. Home tomorrow if he remains stable. (2) Leukocytosis: Qualifiers: Leukocytosis type: unspecified Qualified Code(s): D72.829 - Elevated white blood cell count, unspecified Code(s): D72.829 - Elevated white blood cell count, unspecified Status: Acute Assessment and Plan: Likely secondary to trauma from recent falls. No signs or acute infection at this time. White count trending downward. (3) Altered mental status: Qualifiers: Altered mental status type: unspecified Qualified Code(s): R41.82 - Altered mental status, unspecified Code(s): R41.82 - Altered mental status, unspecified Status: Acute Assessment and Plan: CT brain showing no acute findings. Mental status change appears to be secondary to narcotic overdose. Patient appears to be at baseline. Will continue to monitor. (4) Frequent falls: Code(s): R29.6 - Repeated falls Status: Acute Assessment and Plan: Likely secondary to being overmedicated. continue follow-up cautions. Continue PT and OT. (5) Diabetes: Qualifiers: Diabetes mellitus complication status: without complication Diabetes mellitus fpc insulin use: without manager intermediate use Diabetes mellitus type: type 2 Qualified Code(s): E11.9 - Type 2 diabetes mellitus without complications Code(s): E11.9 - Type 2 diabetes mellitus without complications Status: Chronic Assessment and Plan: glucose reviewed on 12/31/2019. Glucose well controlled. No A1c listed. Patient not on medications for diabetes. Will stop Accuchecks. (6) Hypothyroid: Qualifiers: Hypothyroidism type: unspecified Qualified Code(s): E03.9 - Hypothyroidism, unspecified Code(s): E03.9 - Hypothyroidism, unspecified Status: Chronic Assessment and Plan: TSH normal in April. Continue levothyroxine. (7) COPD (chronic obstructive pulmonary disease): Qualifiers: COPD type: unspecified COPD Qualified Code(s): J44.9 - Chronic obstructive pulmonary disease, unspecified Code(s): J44.9 - Chronic obstructive pulmonary disease, unspecified Status: Chronic Assessment and Plan: Stable. Resume bronchodilators as needed. (8) Back pain: Qualifiers: Back pain laterality: unspecified Back pain location: back pain in unspecified location Chronicity: chronic Qualified Code(s): M54.9 - Dorsalgia, unspecified; G89.29 - Other chronic pain Code(s): M54.9 - Dorsalgia, unspecified Status: Chronic Assessment and Plan: Patient's mental status has remained stable. He may be hallucinating from withdrawal symptoms although he denies hallucinations. Will resume his long-acting morphine. (9) Hypertension: Qualifiers: Hypertension type: unspecified Qualified Code(s): I10 - Essential (primary) hypertension Code(s): I10 - Essential (primary) hypertension Status: Chronic Assessment and Plan: Blood pressure reviewed on 12/31/2019. Blood pressure between more elevated. Will resume home antihypertensive medications. Subjective Date/time seen: 12/31/19 11:33 Interval history: 64-year-old male here for altered m
[2019-12-31] MEDS: BACLOFEN 10 MG TABLET PO ×2 (12:28→16:56)
[2019-12-31 16:00] VITALS: BP 168/87; PULSE 106; RESP 20; TEMP 36.9; O2SAT 98
[2019-12-31] MEDS: MORPHINE SULFATE 30 MG TABCR PO (16:56)
[2019-12-31 20:00] VITALS: PULSE 106; RESP 20; O2SAT 98
[2019-12-31 22:17] VITALS: BP 132/82; PULSE 82; RESP 20; TEMP 36.8; O2SAT 99
[2019-12-31] MEDS: AMITRIPTYLINE HCL 25 MG TABLET 75 MG PO (23:29)
[2019-12-31] MEDS: GABAPENTIN 300 MG CAPSULE 900 MG PO (23:29)
[2020-01-01] MEDS: OLANZapine 10 MG INJ VIAL IM (01:44)
[2020-01-01 07:02] VITALS: BP 150/83; PULSE 66; RESP 16; TEMP 37.1; O2SAT 94
[2020-01-01 08:00] VITALS: PULSE 83; RESP 18; O2SAT 94
[2020-01-01] MEDS: MELOXICAM 7.5 MG TABLET 15 MG PO (09:00)
[2020-01-01] MEDS: LEVOTHYROXINE SODIUM 50 MCG TABLET PO (09:48)
[2020-01-01] MEDS: lisinopriL 2.5 MG TABLET PO (09:48)
[2020-01-01] MEDS: FERROUS SULFATE 324 MG TABLET PO (09:48)
[2020-01-01] MEDS: CITALOPRAM HYDROBROMIDE 10 MG TABLET PO (09:48)
[2020-01-01] MEDS: METOPROLOL SUCCINATE EXT REL 50 MG TABCR PO (09:49)
[2020-01-01] MEDS: MORPHINE SULFATE 30 MG TABCR PO (09:53)
--- NOTE | 2020-01-01 12:40 | PM.DS ---
DS: Admitting Diagnosis Admitting Diagnosis Admitting Diagnosis: Poisoning by unspecified narcotics, accidental (unintentional), initial encounter DS: Discharge Diagnosis Discharge Diagnosis (1) Narcotic overdose: Qualifiers: Encounter type: initial encounter Injury intent: accidental or unintentional Qualified Code(s): T40.601A - Poisoning by unspecified narcotics, accidental (unintentional), initial encounter Code(s): T40.601A - Poisoning by unspecified narcotics, accidental (unintentional), initial encounter Status: Acute Assessment and Plan: Patient was brought in after being found to have decreased alertness felt related to an unintentional overdose. Patient was evaluated in the emergency room and placed on a Narcan drip. He was admitted to the ICU. Patient's mental status improved and we were able to wean the Narcan drip off. Patient recovered as expected. He did have some mild confusion and actually absconded from the facility for a short period of time. It was felt this was related to being off his chronic narcotics so some were resumed. Patient is awake and alert now. He was educated about the benefits of not taking excessive narcotics. [facility] called and case discussed with Dr Winn. (2) Leukocytosis: Qualifiers: Leukocytosis type: unspecified Qualified Code(s): D72.829 - Elevated white blood cell count, unspecified Code(s): D72.829 - Elevated white blood cell count, unspecified Status: Acute Assessment and Plan: Likely secondary to trauma from recent falls. No signs or acute infection at this time. White count trended downward. (3) Altered mental status: Qualifiers: Altered mental status type: unspecified Qualified Code(s): R41.82 - Altered mental status, unspecified Code(s): R41.82 - Altered mental status, unspecified Status: Acute Assessment and Plan: CT brain showing no acute findings. Mental status change appears to be secondary to narcotic overdose. Patient back to baseline. (4) Frequent falls: Code(s): R29.6 - Repeated falls Status: Acute Assessment and Plan: Likely secondary to being overmedicated. PT and OT ordered. Patient walking in the halls without assistance. 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 Glucose well controlled. Patient not on medications for diabetes. (6) Hypothyroid: Qualifiers: Hypothyroidism type: unspecified Qualified Code(s): E03.9 - Hypothyroidism, unspecified Code(s): E03.9 - Hypothyroidism, unspecified Status: Chronic Assessment and Plan: TSH normal in April. We continued his levothyroxine. (7) COPD (chronic obstructive pulmonary disease): Qualifiers: COPD type: unspecified COPD Qualified Code(s): J44.9 - Chronic obstructive pulmonary disease, unspecified Code(s): J44.9 - Chronic obstructive pulmonary disease, unspecified Status: Chronic Assessment and Plan: Stable. Bronchodilators available as needed. (8) Back pain: Qualifiers: Back pain location: back pain in unspecified location Chronicity: chronic Back pain laterality: unspecified Qualified Code(s): M54.9 - Dorsalgia, unspecified; G89.29 - Other chronic pain Code(s): M54.9 - Dorsalgia, unspecified Status: Chronic Assessment and Plan: Patient's mental status has remained stable. He may be hallucinating from withdrawal symptoms although he denies hallucinations. Wel resumed his
[2020-01-01] MEDS: BACLOFEN 10 MG TABLET PO (12:42)
[2020-01-01 14:00] VITALS: BP 118/68; PULSE 83; RESP 18; TEMP 36.7; O2SAT 94
== END 2020-01-01 16:05 | disposition home or self-care (01) | DRG 812 ==
LOC: ANHED 02:28 → ANHICU 04:30 → ANH3MEDSUR 12:56
PROVIDERS: Admitting Provider Family Medicine; Emergency Provider Emergency Medicine; Visit Provider Internal Medicine
DX: T40.601A Poisoning by unspecified narcotics, accidental (unintentional), initial encounter (principal); R41.82 Altered mental status, unspecified; D72.829 Elevated white blood cell count, unspecified; R29.6 Repeated falls; E03.9 Hypothyroidism, unspecified; E11.9 Type 2 diabetes mellitus without complications; J44.9 Chronic obstructive pulmonary disease, unspecified; M54.9 Dorsalgia, unspecified; G89.29 Other chronic pain; I10 Essential (primary) hypertension; F17.210 Nicotine dependence, cigarettes, uncomplicated; Y92.009 Unspecified place in unspecified non-institutional (private) residence as the place of occurrence of the external cause
CPT/HCPCS: 36415; 51701; 70450; 71045; 80048; 80053; 80307; 81003; 85025; 93005; 94640; 96361; 96365; 96376; 97161; 97165; 99285; A9270; J0131; J2060; J2310; J7030; J7042; J7050

== ENCOUNTER 2021-08-16 10:46 | Outpatient (CLI) | payer MEDICARE, MEDICAID, SELFPAY ==
--- NOTE | ~2021-08-16 | CT_ITS ---
EXAMINATION: CT lung screening DATE: 08/16/2021 11:04 INDICATION: Personal history of nicotine dependence, current smoker with 40 pack year history TECHNIQUE: Computed tomography (CT) of the chest was performed without intravenous contrast. The dose -length product (DLP) was 68.08 mGy-cm. Automated exposure control and iterative reconstruction techn ique were employed. COMPARISON: None FINDINGS: There is moderate emphysema. There is scarring in the right lung apex. There is a 9 mm subs olid nodule of the right lower lobe on image 81 without solid nodular component. The lungs are free o f acute opacities. There is no pleural effusion or pneumothorax. No pathologically enlarged thoracic lymph nodes are identified. The heart size is normal. Calcified coronary artery atherosclerosis is no gayle. There is moderate thoracic spondylosis. IMPRESSION: 1. Lung-RADS category 2: Benign appearance or behavior. Continue annual screening with noncontrast lo w-dose chest CT in 12 months. Reviewed, dictated and finalized at location B. 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 Lung-RADS category 2: Benign appearance or behavior. Continue annual screeni ng with noncontrast low-dose chest CT in 12 months.
== END 2021-08-16 10:47 | disposition home or self-care (01) ==
LOC: ANHIMG 10:54
PROVIDERS: PCP Nurse Practitioner Family; Visit Provider Nurse Practitioner Family
DX: F17.210 Nicotine dependence, cigarettes, uncomplicated (principal)
CPT/HCPCS: 71271

== ENCOUNTER 2021-12-06 08:22 | Outpatient (CLI) | payer MEDICARE, MEDICAID, SELFPAY ==
--- NOTE | ~2021-12-06 | MR_ITS ---
EXAMINATION: MR brain/brain stem wo/w con DATE: 12/06/2021 09:26 INDICATION: Memory deficits TECHNIQUE: Magnetic resonance imaging (MRI) of the brain and brainstem was performed without intraven ous contrast. Sequences included sagittal and axial T1-weighted SE, axial diffusion-weighted FS SE, a xial T2*-weighted GRE, axial T2-weighted FLAIR Propeller, and axial T2-weighted Propeller. Apparent d iffusion coefficient (ADC) maps were created. COMPARISON: MRI dated 06/29/2017. FINDINGS: Mild generalized atrophy. There are scattered moderate periventricular and subcortical whit e matter changes, most likely related to small vessel ischemic disease (microangiopathy). There are a lso punctate areas of increased T2/FLAIR weighted signal intensity in the brainstem, likely chronic s mall vessel ischemic change. No ventriculomegaly or midline shift. Orbits are symmetric without disco njugate gaze. No abnormal contrast enhancement. No focal masses or mass effect. Paranasal sinuses and mastoids are pneumatized. Structures of the posterior fossa including 7/8th cranial nerve complexes are otherwise unremarkable. IMPRESSION: 1. No acute intracranial abnormality. 2: Chronic age-related findings. Reviewed, dictated and finalized at location A.
[2021-12-06 09:03] LABS: Estimated Glomerular Filt Rate > 60
== END 2021-12-06 08:23 | disposition home or self-care (01) ==
PROVIDERS: PCP Nurse Practitioner Family; Visit Provider Nurse Practitioner Family
DX: R41.3 Other amnesia (principal)
CPT/HCPCS: 70553; A9577

== ENCOUNTER 2022-07-27 10:30 | Outpatient (CLI) | payer MEDICARE, MEDICAID, SELFPAY ==
--- NOTE | ~2022-07-27 | US_ITS ---
EXAMINATION: US aorta [facility] DATE: 07/27/2022 11:14 INDICATION: Abdominal aortic aneurysm screening TECHNIQUE: Grayscale, color Doppler, and pulsed Doppler images of the aorta and common iliac arteries were obtained. COMPARISON: None. FINDINGS: The proximal aorta measures 2.2 cm AP. The mid aorta measures 1.9 cm. The distal aorta measures 1.8 c m. The right common iliac artery measures 9 mm. The left common iliac artery measures 8 mm. IMPRESSION: 1. Normal caliber abdominal aorta. Reviewed, dictated and finalized at location D. 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
== END 2022-07-27 10:31 | disposition home or self-care (01) ==
PROVIDERS: PCP Nurse Practitioner Family; Visit Provider Nurse Practitioner Family
DX: Z13.6 Encounter for screening for cardiovascular disorders (principal)
CPT/HCPCS: 76706

== ENCOUNTER 2022-08-24 13:49 | Outpatient (CLI) | payer MEDICARE, MEDICAID, SELFPAY ==
--- NOTE | ~2022-08-24 | CT_ITS ---
EXAMINATION: CT lung screening DATE: 08/24/2022 14:03 INDICATION: Personal history of tobacco use TECHNIQUE: Computed tomography (CT) of the chest was performed without intravenous contrast. The dose -length product was 80.90 mGy-cm. Automated exposure control and iterative reconstruction technique w ere employed. COMPARISON: CT dated 08/16/2021 FINDINGS: There is chronic right apical pleural thickening/scarring. No thoracic lymphadenopathy. The re is atherosclerosis of the aorta and coronary arteries. There is emphysema. There is lingular atele ctasis/scarring. Subsolid nodule in the right lower lobe seen on prior CT is not appreciated on the c urrent study no endobronchial lesions. No new pulmonary nodules or masses. There is moderate spondylo sis of the visualized spine. There is a mild chronic wedge compression deformity of T7. IMPRESSION: 1. Lung-RADS category 2: Benign appearance or behavior. Continue annual screening with noncontrast lo w-dose chest CT in 12 months. Reviewed, dictated and finalized at location A. IMPRESSION: 1. Lung-RADS category 2: Benign appearance or behavior. Continue annual screeni ng with noncontrast low-dose chest CT in 12 months.
== END 2022-08-24 13:50 | disposition home or self-care (01) ==
LOC: ANHIMG 13:49
PROVIDERS: PCP Nurse Practitioner Family; Visit Provider Nurse Practitioner Family
DX: Z12.2 Encounter for screening for malignant neoplasm of respiratory organs (principal); Z87.891 Personal history of nicotine dependence
CPT/HCPCS: 71271